=== PATIENT | male | born 1985 | race African-American/Black ===

== ENCOUNTER 2016-12-01 18:01 | Emergency (ER) | payer SELFPAY ==
[2016-12-01 18:12] VITALS: BP 125/77
[2016-12-01] MEDS ORDERED: PENICILLIN G BENZATHINE 1.2 MILLION UNIT/2 ML DISP.SYRIN IM ONE (18:41)
[2016-12-01] MEDS ORDERED: IBUPROFEN 600 MG TABLET PO ONE (18:41)
--- NOTE | 2016-12-01 18:54 | ER Document Report ---
HPI - HPI Patient complains to provider of: sore throat, exposure to strep Onset: This morning Onset/Duration: Gradual Quality of pain: Sharp Severity: Mild Pain Level: 2 Context: Patient complains of sore throat that started today. States he was exposed to strep. Denies congestion or other symptoms at this time. Associated Symptoms: Sore throat Exacerbated by: Denies Relieved by: Denies Similar symptoms previously: Yes Recently seen / treated by doctor: No - ROS ROS below otherwise negative: Yes Systems Reviewed and Negative: Yes All other systems reviewed and negative - CONSTITUTIONAL Constitutional: DENIES: Fever - EENT EENT: REPORTS: Sore Throat - NEURO Neurology: DENIES: Headache - CARDIOVASCULAR Cardiovascular: DENIES: Chest pain - RESPIRATORY Respiratory: DENIES: Trouble Breathing - GASTROINTESTINAL Gastrointestinal: DENIES: Abdominal Pain - MUSCULOSKELETAL Musculoskeletal: DENIES: Extremity pain - DERM Skin Color: Normal Past Medical History - General Information source: Patient - Social History Smoking Status: Never Smoker Frequency of alcohol use: None Drug Abuse: None Lives with: Family Family History: Reviewed & Not Pertinent - Past Medical History Cardiac Medical History: Reports: Hx DVT - 2011 in right calf Surgical Hx: Negative - Immunizations Hx Diphtheria, Pertussis, Tetanus Vaccination: No Vertical Provider Document - CONSTITUTIONAL Agree With Documented VS: Yes Exam Limitations: No Limitations General Appearance: WD/WN, No Apparent Distress - INFECTION CONTROL TRAVEL OUTSIDE OF THE [place] IN LAST 30 DAYS: No - HEENT HEENT: Atraumatic, Normocephalic, Pharyngeal Erythema - NECK Neck: Lymphadenopathy-Left, Lymphadenopathy-Right - RESPIRATORY Respiratory: Breath Sounds Normal, No Respiratory Distress O2 Sat by Pulse Oximetry: 99 - CARDIOVASCULAR Cardiovascular: Regular Rate, Regular Rhythm - MUSCULOSKELETAL/EXTREMETIES Musculoskeletal/Extremeties: MAEW - NEURO Level of Consciousness: Awake, Alert, Appropriate - DERM Integumentary: Warm, Dry, No Rash Course - Vital Signs Vital signs: Temp Pulse Resp BP Pulse Ox 98.8 F 72 125/77 99 12/01/16 18:10 12/01/16 18:10 12/01/16 18:10 12/01/16 18:10 Discharge - Discharge Clinical Impression: Pharyngitis Qualifiers: Pharyngitis/tonsillitis etiology: unspecified etiology Qualified Code(s): J02.9 - Acute pharyngitis, unspecified Condition: Good Disposition: HOME, SELF-CARE Additional Instructions: Tylenol or Motrin as needed for sore throat and/or fever Salt water gargles, lozenges for relief of symptoms as needed Push fluids Make sure toothbrush in 2 days Follow-up with your doctor for recheck if not better in 2-3 days Return as needed Forms: Return to Work
== END 2016-12-01 19:00 | disposition home or self-care (01) ==
LOC: ER 18:01
DX: J02.9 Acute pharyngitis, unspecified (principal); R59.0 Localized enlarged lymph nodes; Z20.818 Contact with and (suspected) exposure to other bacterial communicable diseases
CPT/HCPCS: 99282; 96372; J0561

== ENCOUNTER 2017-04-15 06:11 | Emergency (ER) | payer OTHER ==
[2017-04-15] MEDS ORDERED: KETOROLAC TROMETHAMINE INJ/PF 30 MG/1 ML SDV IV ONE (07:14)
[2017-04-15] MEDS ORDERED: NORMAL SALINE 1000 ML 1,000 ML IV PRN (07:14)
--- NOTE | 2017-04-15 08:16 | RADIOLOGY REPORT (SQ) ---
EXAM DESCRIPTION: CT LTD RENAL STONE PROTOCOL ON COMPLETED DATE/TIME: 04/15/2017 7:32 am REASON FOR STUDY: left flank pain COMPARISON: None. TECHNIQUE: CT scan of the abdomen and pelvis performed without intravenous or oral contrast. Images reviewed with lung, soft tissue, and bone windows. Reconstructed coronal and sagittal MPR images revi ewed. All images stored on PACS. All CT scanners at this facility use dose modulation, iterative reconstruction, and/or weight based d osing when appropriate to reduce radiation dose to as low as reasonably achievable (ALARA). [facility]: Dose Right [facility]: CareDose [facility]: Dose Right [facility]: Teradose 4D [facility]: Smart Fast Asset RADIATION DOSE: CT Rad equipment meets quality standard of care and radiation dose reduction techniq ues were employed. CTDIvol: 5.3 mGy. DLP: 289 mGy-cm.mGy. LIMITATIONS: None. FINDINGS: LOWER CHEST: Chronic bibasilar scarring. NON-CONTRASTED LIVER, SPLEEN, ADRENALS: Evaluation limited by lack of IV contrast. No identified sign ificant masses. PANCREAS: No masses. No peripancreatic inflammatory changes. GALLBLADDER: No identified stones by CT criteria. No inflammatory changes to suggest cholecystitis. RIGHT KIDNEY AND URETER: No suspicious masses. Assessment limited by lack of IV contrast. No signif icant calcifications. No hydronephrosis or hydroureter. LEFT KIDNEY AND URETER: No suspicious masses. Assessment limited by lack of IV contrast. No signifi cant calcifications. No hydronephrosis or hydroureter. AORTA AND RETROPERITONEUM: No aneurysm. No retroperitoneal masses or adenopathy. BOWEL AND PERITONEAL CAVITY: There is thickening of the stomach wall which could be due to incomplete distention. Constipation is noted. APPENDIX: Normal. PELVIS, BLADDER, AND ABDOMINAL WALL: Prostate: No abnormality seen urinary bladder: No abnormality seen. BONES: No significant findings. OTHER: No other significant finding. IMPRESSION: NO SIGNIFICANT OR ACUTE PROCESS IN THE ABDOMEN OR PELVIS. COMMENT: Quality ID # [id number]: Final reports with documentation of one or more dose reduction techniques (e.g., Automated exposure control, adjustment of the mA and/or kV according to patient size, use of iterative reconstruction technique) TECHNICAL DOCUMENTATION: JOB ID: [id number] SC-69 2010 [employer]- All Rights Reserved Reading location - IP/workstation name: [email or web address]
[2017-04-15 08:24] LABS: ABSOLUTE EOSINOPHILS # (AUTO) 0.1 10^3/uL (0.0-0.6); ABSOLUTE LYMPHOCYTES (AUTO) 1.7 10^3/uL (0.5-4.7); ABSOLUTE MONOCYTES (AUTO) 0.4 10^3/uL (0.1-1.4); ABSOLUTE NEUT (AUTO) 5.6 10^3/uL (1.7-8.2); BASOPHILS % (AUTO) 0.5 % (0-2); EOSINOPHILS % (AUTO) 1.7 % (0-6); HEMATOCRIT 46.2 % (37.9-51.0); HEMOGLOBIN 15.4 g/dL (13.5-17.0); LYMPHOCYTES % (AUTO) 21.5 % (13-45); MEAN CORPUSCULAR HEMOGLOBIN 31.1 pg (27.0-33.4); MEAN CORPUSCULAR HGB CONC 33.2 g/dL (32.0-36.0); MEAN CORPUSCULAR VOLUME 94 fl (80-97); MONOCYTES % (AUTO) 5.3 % (3-13); PLATELET COUNT 210 10^3/uL (150-450); RED BLOOD COUNT 4.94 10^6/uL (4.35-5.55); RED CELL DISTRIBUTION WIDTH 13.4 % (11.5-14.0); TOTAL CELLS COUNTED % (AUTO) 100 %; WHITE BLOOD COUNT 7.9 10^3/uL (4.0-10.5)
[2017-04-15 08:29] LABS: APPEARANCE,URINE CLEAR; BILIRUBIN,URINE NEGATIVE (NEGATIVE); COLOR,URINE YELLOW; GLUCOSE, URINE NEGATIVE (NEGATIVE); KETONES,URINE NEGATIVE (NEGATIVE); LEUKOCYTE ESTERASE,URINE NEGATIVE (NEGATIVE); NITRITE,URINE NEGATIVE (NEGATIVE); PROTEIN,URINE NEGATIVE (NEGATIVE); URINE SPECIFIC GRAVITY 1.023; UROBILINOGEN,URINE NEGATIVE mg/dL (<2.0)
[2017-04-15 08:49] LABS: ALANINE AMINOTRANSFERASE 22 U/L (21-72); ALBUMIN 4.3 g/dL (3.5-5.0); ALKALINE PHOSPHATASE 45 U/L (38-126); ANION GAP 9 (5-19); ASPARTATE AMINO TRANSFERASE 27 U/L (17-59); BILIRUBIN,DIRECT 0.1 mg/dL (0.0-0.4); BILIRUBIN,TOTAL 1.2 mg/dL (0.2-1.3); BLOOD UREA NITROGEN 16 mg/dL (7-20); CALCIUM 9.8 mg/dL (8.4-10.2); CARBON DIOXIDE 30 mmol/L (22-30); CHLORIDE 105 mmol/L (98-107); GLUCOSE 79 mg/dL (75-110); LIPASE 39.4 U/L (23-300); POTASSIUM 4.3 mmol/L (3.6-5.0); SODIUM 144.1 mmol/L (137-145); TOTAL PROTEIN 6.8 g/dL (6.3-8.2)
--- NOTE | 2017-04-15 09:35 | ER Document Report ---
ED General - General Chief Complaint: Flank Pain Stated Complaint: FLANK PAIN Time Seen by Provider: 04/15/17 06:32 TRAVEL OUTSIDE OF THE [place] IN LAST 30 DAYS: No - HPI Patient complains to provider of: Left flank pain Notes: Left foot pain ongoing for the last 2 weeks patient states pain is severe aching patient is unable to sit up in bed upon examination. Patient however was seen ambulating through the ER. Denies any nausea vomiting fevers chills denies any dysuria denies any trauma. Patient states he is not taking any medications with relief. Otherwise resting comfortably lying flat on his back upon my evaluation. - Related Data Allergies/Adverse Reactions: No Known Allergies Allergy (Verified 12/01/16 19:05) Past Medical History - Social History Smoking Status: Never Smoker Frequency of alcohol use: Rare Drug Abuse: None Family History: Reviewed & Not Pertinent Patient has suicidal ideation: No Patient has homicidal ideation: No - Past Medical History Cardiac Medical History: Reports: Hx DVT - 2011 in right calf Renal/ Medical History: Denies: Hx Peritoneal Dialysis - Immunizations Hx Diphtheria, Pertussis, Tetanus Vaccination: No Review of Systems - Review of Systems Constitutional: No symptoms reported EENT: No symptoms reported Cardiovascular: No symptoms reported Respiratory: No symptoms reported Gastrointestinal: No symptoms reported Genitourinary: Flank pain Male Genitourinary: No symptoms reported Musculoskeletal: No symptoms reported Skin: No symptoms reported Hematologic/Lymphatic: No symptoms reported Neurological/Psychological: No symptoms reported -: Yes All other systems reviewed and negative Physical Exam - Vital signs Vitals: Temp Pulse Resp BP Pulse Ox 97.9 F 76 16 147/99 H 100 04/15/17 06:16 04/15/17 06:16 04/15/17 06:16 04/15/17 06:16 04/15/17 06:16 Interpretation: Normal - General General appearance: Appears well, Alert - HEENT Head: Normocephalic, Atraumatic Eyes: Normal Pupils: PERRL - Respiratory Respiratory status: No respiratory distress Chest status: Nontender Breath sounds: Normal Chest palpation: Normal - Cardiovascular Rhythm: Regular Heart sounds: Normal auscultation Murmur: No - Abdominal Inspection: Normal Distension: No distension Bowel sounds: Normal Tenderness: Nontender Organomegaly: No organomegaly - Back Back: Normal, Tender - Tenderness to palpation of the left paraspinal muscles, CVA tenderness - Extremities General upper extremity: Normal inspection, Nontender, Normal color, Normal ROM , Normal temperature General lower extremity: Normal inspection, Nontender, Normal color, Normal ROM , Normal temperature, Normal weight bearing. No: Eyad's sign - Neurological Neuro grossly intact: Yes Cognition: Normal Orientation: AAOx4 [place] Coma Scale Eye Opening: Spontaneous [place] Coma Scale Verbal: Oriented [place] Coma Scale Motor: Obeys Commands [place] Coma Scale Total: 15 Speech: Normal Motor strength normal: LUE, RUE, LLE, RLE Sensory: Normal - Psychological Associated symptoms: Normal affect, Normal mood - Skin Skin Temperature: Warm Skin Moisture: Dry Skin Color: Normal Course - Re-evaluation Re-evalutation: 04/15/17 13:53 Patient resting comfortably upon my evaluation. Patient more likely has a muscle strain as that patient workup does not show any signs of significant pathology. Patient will be discharged on follow-up primary care physician. The patient presents with abdominal pain without signs of peritonitis or other life-threatening or serious etiology. The patient appears stable for discharge and has been instructed to return immediately if the symptoms worsen in any way , or in 8-12hr if not improved for re-evaluation. The patient has been instructed to return if the symptoms worsen or change in any way. 04/15/17 13:53 - Vital Signs Vital signs: Temp Pulse Resp BP Pulse Ox 98.5 F 64 16 136/93 H 100 04/15/17 09:57 04/15/17 09:57 04/15/17 09:57 04/15/17 09:57 04/15/17 09:57 - Laboratory Result Diagrams: 04/15/17 08:09 04/15/17 08:09 Laboratory results interpreted by me: 04/15/17 08:09 Urine Ascorbic Acid 40 H Discharge - Discharge Clinical Impression: Muscle strain, Flank pain Condition: Good Disposition: HOME, SELF-CARE Instructions: Flank Pain ([facility]), Myalagia (Muscle Pain) ([facility]) Additional Instructions: Your laboratory results today and CAT scan not reveal any significant pathology. More likely your pain is related to a muscle strain. Please follow- up with your primary care physician return to the ER symptoms worsen. Please take prescribed medication he may also take Tylenol for pain control use heat packs and ice packs. Prescriptions: Ibuprofen [Motrin 800 mg Tablet] 800 mg PO Q8H PRN #30 tab PRN Reason: Forms: Return to Work
[2017-04-15 09:58] VITALS: BP 136/93
== END 2017-04-15 09:58 | disposition home or self-care (01) ==
LOC: ER 06:11
DX: T14.8XXA Other injury of unspecified body region, initial encounter (principal); X58.XXXA Exposure to other specified factors, initial encounter; R10.9 Unspecified abdominal pain
CPT/HCPCS: 99284; 96361; 96374; 36415; 83690; 85025; 80053; 81001; 76380; J1885; J7030

== ENCOUNTER 2017-11-06 11:56 | Emergency (ER) | payer OTHER ==
[2017-11-06] MEDS ORDERED: FENTANYL CITRATE INJ/PF 100 MCG/2 ML AMPUL IV ONE ×2 (12:03→13:54)
[2017-11-06] MEDS ORDERED: KETOROLAC TROMETHAMINE INJ/PF 30 MG/1 ML SDV IV ONE (12:03)
[2017-11-06] MEDS ORDERED: ONDANSETRON HCL INJ/PF 4 MG/2 ML SDV IV ONE (12:03)
[2017-11-06] MEDS ORDERED: NORMAL SALINE 1000 ML 1,000 ML IV ONE (12:04)
--- NOTE | 2017-11-06 12:06 | ER Document Report ---
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 Severe/crampy in nature. Associated with nausea and vomited. No fever chills or other constitutional symptoms Examination he has been on acute distress. TRAVEL OUTSIDE OF THE [place] IN LAST 30 DAYS: No - Related Data Allergies/Adverse Reactions: No Known Allergies Allergy (Verified 12/01/16 19:05) Past Medical History - Past Medical History Cardiac Medical History: Reports: Hx DVT - 2011 in right calf Renal/ Medical History: Denies: Hx Peritoneal Dialysis - Immunizations Hx Diphtheria, Pertussis, Tetanus Vaccination: No Physical Exam - Vital signs Vitals: Temp Pulse Resp BP Pulse Ox 98.4 F 83 22 H 156/109 H 100 11/06/17 12:01 11/06/17 12:01 11/06/17 12:01 11/06/17 12:01 11/06/17 12:01 Course - Vital Signs Vital signs: Temp Pulse Resp BP Pulse Ox 98.4 F 83 22 H 156/109 H 100 11/06/17 12:01 11/06/17 12:01 11/06/17 12:01 11/06/17 12:01 11/06/17 12:01
--- NOTE | 2017-11-06 12:32 | ER Document Report ---
ED GI/ - General Chief Complaint: Nausea/Vomiting/Diarrhea Stated Complaint: ABDOMINAL PAIN Time Seen by Provider: 11/06/17 12:01 Notes: Patient is here with apparently severe abdominal pains, nausea and vomiting, and diarrhea which awakened the patient around 6 AM this morning. He has had about 4 episodes of vomiting and 4 episodes of diarrhea. Has not seen any blood in either. He has had similar pains to this in the past which has been attributed to an allergy to milk, but he says the pains have never been as severe as they are now. He recalls drinking some milk late last night. Patient has never had any abdominal surgeries. Does not take any regular prescription medications for anything. TRAVEL OUTSIDE OF THE [place] IN LAST 30 DAYS: No - Related Data Allergies/Adverse Reactions: No Known Allergies Allergy (Verified 12/01/16 19:05) Past Medical History - Social History Smoking Status: Never Smoker Frequency of alcohol use: None Drug Abuse: None Family History: Reviewed & Not Pertinent Patient has suicidal ideation: No Patient has homicidal ideation: No - Past Medical History Cardiac Medical History: Reports: Hx DVT - 2011 in right calf Renal/ Medical History: Denies: Hx Peritoneal Dialysis GI Medical History: Reports: Other - See HPI. - Immunizations Hx Diphtheria, Pertussis, Tetanus Vaccination: No Review of Systems - Review of Systems Notes: REVIEW OF SYSTEMS: Denies fever. EENT: Denies eye, ear, nose or mouth or throat pain or other symptoms. CARDIOVASCULAR: Denies chest pain. RESPIRATORY: Denies cough, chest congestion, or shortness of breath. GASTROINTESTINAL: See HPI. GENITOURINARY: Denies difficulty or painful urinating, urinary frequency, blood in urine. MUSCULOSKELETAL: Denies back or neck pain. Denies joint pain or swelling. SKIN: Denies rash or skin lesions. NEUROLOGICAL: Denies LOC or altered mental status. Denies headache. Denies sensory loss or motor deficits. ALL OTHER SYSTEMS REVIEWED AND NEGATIVE. Physical Exam - Vital signs Vitals: Temp Pulse Resp BP Pulse Ox 98.4 F 83 22 H 156/109 H 100 11/06/17 12:01 11/06/17 12:01 11/06/17 12:01 11/06/17 12:01 11/06/17 12:01 Interpretation: Hypertensive - Moderate - Notes Notes: PHYSICAL EXAMINATION: General: Appears to be in pain. On the floor, on his knees, in the bathroom leaning all the way forward so that his upper body is to the floor. HEAD: Atraumatic, normocephalic. EYES: Pupils equal round and reactive to light, extraocular movements intact. ENT: oropharynx clear without exudates. Moist mucous membranes. NECK: Normal range of motion, supple. LUNGS: Breath sounds clear and equal bilaterally. HEART: Regular rate and rhythm without murmurs. ABDOMEN: Diffuse tenderness, patient indicates most pain in the suprapubic region and right midline area. No masses felt. Not actually guarding and no rebound present. BACK: No tenderness throughout entire back. EXTREMITIES: Normal range of motion without pain. NEUROLOGICAL: Normal speech, normal gait. Normal sensory, motor, and reflex exams. Awake, alert, and oriented x3. Cranial nerves normal. PSYCH: Normal mood, normal affect. SKIN: Warm, dry, no rashes. Course - Re-evaluation Re-evalutation: 11/06/17 13:53 Patient says his abdomen is a "little bit" better and that the medications have helped some. He points specifically to the suprapubic region of his abdomen as the location of the pain. Does not have any pain or tenderness in the right lower quadrant at McBurney's point. No guarding and no rebound anywhere. No labs back yet. Probably going to order a CT scan. 11/06/17 18:03 Patient says he still having some pain but is less than it was doing. All of his studies except for his white count and differential have come back essentially normal, but also positive for marijuana. I discussed with the patient the possibility he might have what we call cyclic vomiting secondary to the marijuana. He believes that his vomiting and abdominal pains are secondary to the ingestion of cereal with milk. I told him that I cannot tell him for sure what caused his symptoms, but I would recommend he consider cutting out smoking marijuana for a while and see if that helps his symptoms. He points out that he smokes marijuana every day and does not have pain or vomiting every day so he does not think it is the marijuana. I still suggested he consider giving up the marijuana for a while and avoid the milk as well and see if his symptoms occur again. His abdomen is soft and really not tender at all at this time. No guarding. No localized tenderness. - Vital Signs Vital signs: Temp Pulse Resp BP Pulse Ox 97.7 F 59 L 18 109/54 L 100 11/06/17 15:03 11/06/17 15:03 11/06/17 15:03 11/06/17 15:03 11/06/17 15:03 - Laboratory Result Diagrams: 11/06/17 13:38 11/06/17 13:38 Laboratory results interpreted by me: 11/06/17 11/06/17 11/06/17 13:38 13:38 14:45 WBC 11.2 H RBC 4.25 L Hgb 13.3 L Seg Neuts % (Manual) 93 H Lymphocytes % (Manual) 6 L Monocytes % (Manual) 1 L Abs Neuts (Manual) 10.4 H Chloride 108 H Glucose 132 H Urine Glucose (UA) 50 H Urine Ketones TRACE H - Diagnostic Test Radiology reviewed: Image reviewed, Reports reviewed - Patient CT scan is normal. Appendix normal. No surgical findings. Discharge - Discharge Clinical Impression: Abdominal pain, Vomiting and diarrhea Condition: Stable Disposition: HOME, SELF-CARE Additional Instructions: ABDOMINAL PAIN: There are many causes of abdominal pain. Pain can mean a serious problem requiring surgery (such as appendicitis). It can also be an innocent problem that goes away on its own (such as a viral infection). Often, time must pass to determine the cause of pain. The physician does not feel that hospitalization is necessary, at present. Things may change within the next 24 hours. Call the doctor or come back for re- examination if any problems occur, such as: (1) Pain that becomes more severe, steady, or becomes concentrated in one specific area. Also, pain that is more severe with movement or coughing. (2) Vomiting that persists or becomes more frequent. (3) Blood in the vomitus, urine, or bowel movements. Blood in the stool may have a tarry or black appearance. (4) Shaking chills or fever greater than 100 degrees F. (5) The abdomen becomes more distended or swollen. (6) Bowel movements cease. (7) Failure to improve as expected. VOMITING: Vomiting (or nausea without vomiting) can be caused by many other different problems. It can mean that something's wrong with the stomach, such as ulcers or inflammation or the intestinal tract, such as appendicitis. But it can also be a symptom of a problem that has nothing to do with the stomach or intestines. Vomiting is common with severe headaches, earaches, tonsillitis, and kidney infections, etc. We see it with pneumonia or heart attacks. Drugs can cause nausea and vomiting. Many abdominal problems cause vomiting; for example, gallstones, kidney stones, pancreatitis, and intestinal obstruction ( blocked bowels). In most cases, curing the vomiting depends on fixing the problem that caused it. For temporary relief, we may use an anti-nausea medicine. For home use, we can prescribe suppositories, chewable pills, pills that dissolve in the mouth, or liquid anti-nausea drugs. If the vomiting seems to be caused by a problem in the stomach, acid-suppressing drugs may be prescribed as well. It's important to avoid dehydration. Sip small amounts of clear liquids ( soft drinks, tea, broth, etc) . Try to take fluids frequently even if you are vomiting to prevent dehydration. Take increasing amounts of fluid and when liquids are being consumed successfully, advance to small amounts of bland food (toast, soups, mashed potatoes, etc.) until you are able to resume a regular diet. Avoid aspirin, tobacco, and alcohol. If the vomiting worsens, if the problem that's making you vomit worsens, or if there's evidence of bleeding in the stomach (such as black, tarry stool, or bloody or black vomit), you should return immediately. Also, return if abdominal pain worsens or becomes localized to one area or you develop high fever. Call your doctor if you aren't improved in 24 hours. DIARRHEA, NON-SPECIFIC: Diarrhea means frequent, watery stools. There are many causes. Any problem that keeps the intestinal tract from absorbing water from the stool can lead to diarrhea. A sudden new diarrhea problem is usually caused by a virus, food sensitivity, toxic bacteria, or drugs. In this case, we expect the problem to go away soon. Testing is done only if you seem seriously ill from the diarrhea. If you have chronic diarrhea, or diarrhea that keeps coming back, we need to find out why. Chronic diarrhea can be due to inflammation of the bowels such as Crohn's disease or ulcerative colitis, food sensitivity such as intolerance to lactose or wheat protein, irritable bowel syndrome, and other problems. If your diarrhea is a significant problem but it's not clear why you have it, we' ll refer you to a specialist for further testing. During an episode of diarrhea, drink small amounts (two to six ounces) of clear liquids (soft drinks, sport drinks, herb teas, broth, etc). Take fluids frequently to prevent dehydration. It's usually not a problem to take mild anti- diarrhea medication such as Kaopectate or Pepto-Bismol. As the diarrhea eases, advance to small amounts of bland food (mashed potato, toast) for 24 hours. Call the physician if blood appears in your vomit or stool, if vomiting lasts longer than 24 hours, if the abdominal pain worsens or becomes localized to one area, if you develop high fever, or if you become lightheaded and weak. TORADOL INJECTION: You have been given an injection of ketorolac tromethamine (Toradol). This is an excellent, safe drug for pain control. It also has potent antiinflammatory action. You should have significant pain relief within about one hour. Toradol is not addicting and is non-sedating. It does not interfere with driving or work. Call or return if you develop itching, hives, shortness of breath, or rash. PAIN MEDICATION INJECTION: You have received an injection of a pain medication. You should experience significant pain relief within 45 minutes. This drug is a narcotic - - it will impair your judgement, slow your reaction time and make you sleepy ( as well as relieve your pain). Narcotics also can cause nausea. You should not drive, work with machinery, or perform any task requiring mental alertness until all effects of the medication are gone -- six to eight hours. Do not take any alcohol, or sedatives, and do not take any other medication without checking with your physician. ANTINAUSEA MEDICATION: You have been given a medication to suppress nausea and vomiting. This type of medication can be given as a shot, pill, or suppository. It will usually last for many hours. Pills and shots usually last six to eight hours, suppositories last about 12 hours. For the typical illness, only one or two doses of the medication may be necessary. Mild lightheadedness may occur. This type of medicine can cause drowsiness. Do not drive or operate dangerous machinery while under its influence. Do not mix with alcohol. See your doctor at once if you have muscle spasms or tightness, or uncontrollable motions (particularly of the neck, mouth, or jaw). Persistent vomiting or severe lightheadedness should also be evaluated by the physician. VIRAL SYNDROME: The physician has diagnosed a viral infection. Viruses not only cause "colds," but can cause many different symptoms including generalized aching, fever, headache, cough, diarrhea, nausea, vomiting, and fatigue. The treatment, for the most part, is simply relief of symptoms. This means that antibiotics are usually not given. Rest, fluids, pain medications and, occasionally, medication for the specific symptoms that are most bothersome will be prescribed. Use good handwashing to avoid passing the virus to others. Shared toys should be cleaned with disinfectant. Clean the toilets, sinks, and counter surfaces in bathrooms. Launder clothing in hot water. Contact the physician if you develop any new or unusual symptoms such as severe headache, stiff neck, high fever, chest pain, productive cough, or shortness of breath. You should be rechecked if you don't see marked improvement within seven to 10 days. INTRAVENOUS (I V) FLUIDS: As part of your care today, you received intravenous (IV) fluids. IV fluids are administered to patients who are dehydrated or to those who have certain chemical (electrolyte) abnormalities that need correcting. ANTINAUSEA MEDICATION: You have been given a medication to suppress nausea and vomiting. This type of medication can be given as a shot, pill, or suppository. It will usually last for many hours. Pills and shots usually last six to eight hours. For the typical illness, only one or two doses of the medication may be necessary. Mild lightheadedness may occur. This type of medicine can cause drowsiness. Do not drive or operate dangerous machinery while under its influence. Do not mix with alcohol. See your doctor at once if you have muscle spasms or tightness, or uncontrollable motions (particularly of the neck, mouth, or jaw). Persistent vomiting or severe lightheadedness should also be evaluated by the physician. You may have a sensitivity or allergy to milk. Your urinalysis drug screen showed marijuana present which can also cause similar symptoms of what you are experiencing. I would recommend you avoid milk and marijuana for a while and see if your symptoms subside. FOLLOW-UP CARE: If you have been referred to a physician for follow-up care, call the physician s office for an appointment as you were instructed or within the next two days. If you experience worsening or a significant change in your symptoms, notify the physician immediately or return to the Emergency Department at any time for re-evaluation.
[2017-11-06 13:49] LABS: HEMATOCRIT 38.8 % (37.9-51.0); HEMOGLOBIN 13.3 g/dL (13.5-17.0); MEAN CORPUSCULAR HEMOGLOBIN 31.3 pg (27.0-33.4); MEAN CORPUSCULAR HGB CONC 34.3 g/dL (32.0-36.0); MEAN CORPUSCULAR VOLUME 91 fl (80-97); PLATELET COUNT 164 10^3/uL (150-450); RED BLOOD COUNT 4.25 10^6/uL (4.35-5.55); WHITE BLOOD COUNT 11.2 10^3/uL (4.0-10.5)
[2017-11-06 14:03] LABS: ALANINE AMINOTRANSFERASE 23 U/L (21-72); ALBUMIN 3.7 g/dL (3.5-5.0); ALKALINE PHOSPHATASE 46 U/L (38-126); ANION GAP 8 (5-19); ASPARTATE AMINO TRANSFERASE 20 U/L (17-59); BILIRUBIN,DIRECT 0.2 mg/dL (0.0-0.4); BILIRUBIN,TOTAL 0.8 mg/dL (0.2-1.3); BLOOD UREA NITROGEN 9 mg/dL (7-20); CARBON DIOXIDE 24 mmol/L (22-30); CHLORIDE 108 mmol/L (98-107); GLUCOSE 132 mg/dL (75-110); LIPASE 24.6 U/L (23-300); POTASSIUM 4.2 mmol/L (3.6-5.0); SODIUM 140.1 mmol/L (137-145); TOTAL PROTEIN 6.3 g/dL (6.3-8.2)
[2017-11-06 14:14] LABS: ABSOLUTE LYMPHOCYTES# (MANUAL) 0.7 10^3/uL (0.5-4.7); ABSOLUTE MONOCYTES # (MANUAL) 0.1 10^3/uL (0.1-1.4); ABSOLUTE NEUTROPHILS# (MANUAL) 10.4 10^3/uL (1.7-8.2); BASOPHILS % (MANUAL) 0 % (0-2); EOSINOPHILS % (MANUAL) 0 % (0-6); LYMPHOCYTES % (MANUAL) 6 % (13-45); MONOCYTES % (MANUAL) 1 % (3-13); SEGMENTED NEUTROPHILS % (MAN) 93 % (42-78); TOTAL CELLS COUNTED 100
[2017-11-06 14:15] LABS: PLATELET CLUMPS PRESENT; PLATELET COMMENT ADEQUATE; RBC MORPHOLOGY COMMENT NORMO-CYTIC/CHROMIC
--- NOTE | 2017-11-06 14:15 | RADIOLOGY REPORT (SQ) ---
EXAM DESCRIPTION: ACUTE ABDOMEN SERIES COMPLETED DATE/TIME: 11/06/2017 1:46 pm REASON FOR STUDY: Acute abdominal pain COMPARISON: None. NUMBER OF VIEWS: Three views. TECHNIQUE: Frontal chest, supine abdomen and upright/decubitus abdomen radiographic images acquired. LIMITATIONS: None. FINDINGS: CHEST: Lungs clear of infiltrates. FREE AIR: None. No abnormal gas collections. BOWEL GAS PATTERN: Nonobstructive pattern. No dilated loops or air fluid levels. CALCIFICATIONS: No suspicious calcifications. HARDWARE: None in the abdomen. SOFT TISSUES: No gross mass or suggestion of organomegaly. BONES: No acute fracture. No worrisome bone lesions. OTHER: No other significant finding. IMPRESSION: NO RADIOGRAPHIC EVIDENCE FOR ACUTE ABDOMINAL DISEASE. TECHNICAL DOCUMENTATION: JOB ID: [id number] [employer]- All Rights Reserved Reading location - IP/workstation name: [email or web address]
[2017-11-06 15:15] LABS: APPEARANCE,URINE CLEAR; BILIRUBIN,URINE NEGATIVE (NEGATIVE); COLOR,URINE YELLOW; GLUCOSE, URINE 50 mg/dL (NEGATIVE); KETONES,URINE TRACE mg/dL (NEGATIVE); LEUKOCYTE ESTERASE,URINE NEGATIVE (NEGATIVE); NITRITE,URINE NEGATIVE (NEGATIVE); PROTEIN,URINE NEGATIVE (NEGATIVE); URINE SPECIFIC GRAVITY 1.017; UROBILINOGEN,URINE NEGATIVE mg/dL (<2.0)
[2017-11-06 15:47] LABS: URINE AMPHETAMINES SCREEN NEGATIVE; URINE BARBITURATES SCREEN NEGATIVE; URINE BENZODIAZEPINES SCREEN NEGATIVE; URINE COCAINE SCREEN NEGATIVE; URINE MARIJUANA (THC) SCREEN UNCONFIRMED POSITIVE; URINE METHADONE SCREEN NEGATIVE; URINE PHENCYCLIDINE SCREEN NEGATIVE
--- NOTE | 2017-11-06 17:17 | RADIOLOGY REPORT (SQ) ---
EXAM DESCRIPTION: CT ABD/PELVIS WITH IV ORAL COMPLETED DATE/TIME: 11/06/2017 4:39 pm REASON FOR STUDY: Lower, mostly suprapubic pain COMPARISON: None. TECHNIQUE: CT scan of the abdomen and pelvis performed using helical scanning technique with dynamic intravenous contrast injection. No oral contrast. Images reviewed with lung, soft tissue, and bone w indows. Reconstructed coronal and sagittal MPR images reviewed. Delayed images for evaluation of the urinary system also acquired. All images stored on PACS. All CT scanners at this facility use dose modulation, iterative reconstruction, and/or weight based d osing when appropriate to reduce radiation dose to as low as reasonably achievable (ALARA). [facility]: Dose Right [facility]: CareDose [facility]: Dose Right [facility]: Teradose 4D [facility]: [employer] CONTRAST TYPE AND DOSE: contrast/concentration: Isovue 350.00 mg/ml; Total Contrast Delivered: 86.0 ml; Total Saline Delivered: 69.0 ml RENAL FUNCTION: None required. The patient is less than 50 years old. RADIATION DOSE: CT Rad equipment meets quality standard of care and radiation dose reduction techniq ues were employed. CTDIvol: 5.6 - 7.7 mGy. DLP: 734 mGy-cm.. LIMITATIONS: None. FINDINGS: LOWER CHEST: No significant findings. LIVER: Normal size. No enhancing masses. No dilated ducts. SPLEEN: Normal size. No focal lesions. PANCREAS: No masses identified. No significant calcifications. No adjacent inflammation or peripancre atic fluid collections. Pancreatic duct not dilated. GALLBLADDER: No calcified stones. No inflammatory changes to suggest cholecystitis. ADRENAL GLANDS: No significant masses. RIGHT KIDNEY AND URETER: No cysts identified. No solid masses identified. No calcified stones. No hyd ronephrosis or hydroureter. LEFT KIDNEY AND URETER: No cysts identified. No solid masses identified. No calcified stones. No hydr onephrosis or hydroureter. AORTA AND VESSELS: No aneurysm. No dissection. Renal arteries, SMA, celiac without significant stenos is. RETROPERITONEUM: No bulky retroperitoneal adenopathy. BOWEL AND PERITONEAL CAVITY: No obstruction or inflammatory changes. No free fluid. APPENDIX: Normal. PELVIS: No mass. No free fluid. Unremarkable bladder. ABDOMINAL WALL: No masses. No hernias. BONES: No acute findings. OTHER: No other significant finding. IMPRESSION: NO ACUTE FINDINGS IN THE ABDOMEN OR PELVIS ON CT SCAN WITH IV CONTRAST. TECHNICAL DOCUMENTATION: JOB ID: [id number] Quality ID # [id number]: Final reports with documentation of one or more dose reduction techniques (e.g., Au tomated exposure control, adjustment of the mA and/or kV according to patient size, use of iterative reconstruction technique) 2010 [employer]- All Rights Reserved Reading location - IP/workstation name: [email or web address]
[2017-11-06 18:37] VITALS: BP 131/73
== END 2017-11-06 18:40 | disposition home or self-care (01) ==
LOC: ER 11:56
DX: R10.30 Lower abdominal pain, unspecified (principal); R11.2 Nausea with vomiting, unspecified; R19.7 Diarrhea, unspecified; R10.817 Generalized abdominal tenderness
CPT/HCPCS: 99285; 96361; 96374; 96375; 36415; 83690; 85025; 80053; 81001; 80307; 74022; 74177; J3010; J1885; J2405

== ENCOUNTER 2017-11-23 09:32 | Emergency (ER) | payer OTHER ==
[2017-11-23] MEDS ORDERED: NORMAL SALINE 1000 ML 1,000 ML IV ONE (09:47)
[2017-11-23] MEDS ORDERED: ONDANSETRON 4 MG TAB.RAPDIS PO ONE (09:47)
--- NOTE | 2017-11-23 09:50 | ER Document Report ---
ED Medical Screen (RME) - General Chief Complaint: Abdominal Pain Stated Complaint: ABDOMINAL PAIN Time Seen by Provider: 11/23/17 09:41 Mode of Arrival: Ambulatory Information source: Patient Notes: 32-year-old male presents emergency department with complaints of abdominal pain that started at 5 AM. He describes the pain as a sharp and stabbing sensation in the lower abdomen without any radiation. No alleviating factors. Patient states that the pain is been constant. He is having some associated nausea, vomiting, diarrhea. He denies any hematemesis, hematochezia, melena, penile discharge, testicular pain, dysuria, hematuria. Patient states that he has been having some associated fever and chills. He states that he was seen in the emergency department for similar on 11/06/17. Patient states that he had labs and imaging done. He states that his CT abdomen pelvis was normal. He was told that his symptoms could be related to marijuana use. Patient states that he cut back on the marijuana use but has not cut it out completely. He denies any medical problems. No surgeries on his abdomen. I have greeted and performed a rapid initial assessment of this patient. A comprehensive ED assessment and evaluation of the patient, analysis of test results and completion of the medical decision making process will be conducted by additional ED providers. PHYSICAL EXAMINATION: GENERAL: Appears uncomfortable. Actively vomiting. HEAD: Atraumatic, normocephalic. EYES: Pupils equal round extraocular movements intact, conjunctiva are normal. ENT: Nares patent NECK: Normal range of motion LUNGS: No respiratory distress Musculoskeletal: Normal range of motion NEUROLOGICAL: Normal speech, normal gait. PSYCH: Normal mood, normal affect. SKIN: Warm, Dry, normal turgor, no rashes or lesions noted. TRAVEL OUTSIDE OF THE [place] IN LAST 30 DAYS: No - Related Data Allergies/Adverse Reactions: No Known Allergies Allergy (Verified 12/01/16 19:05) Past Medical History - Social History Chew tobacco use (# tins/day): No Frequency of alcohol use: None Drug Abuse: Marijuana - Past Medical History Cardiac Medical History: Reports: Hx DVT - 2011 in right calf Renal/ Medical History: Denies: Hx Peritoneal Dialysis - Immunizations Hx Diphtheria, Pertussis, Tetanus Vaccination: No Physical Exam - Vital signs Vitals: Temp Pulse Resp BP Pulse Ox 97.8 F 83 24 H 168/113 H 100 11/23/17 09:41 11/23/17 09:41 11/23/17 09:41 11/23/17 09:41 11/23/17 09:41 Course - Vital Signs Vital signs: Temp Pulse Resp BP Pulse Ox 97.8 F 83 24 H 168/113 H 100 11/23/17 09:41 11/23/17 09:41 11/23/17 09:41 11/23/17 09:41 11/23/17 09:41
[2017-11-23 10:17] LABS: ABSOLUTE BASOPHILS # (AUTO) 0.1 10^3/uL (0.0-0.2); ABSOLUTE EOSINOPHILS # (AUTO) 0.1 10^3/uL (0.0-0.6); ABSOLUTE LYMPHOCYTES (AUTO) 1.8 10^3/uL (0.5-4.7); ABSOLUTE MONOCYTES (AUTO) 0.4 10^3/uL (0.1-1.4); ABSOLUTE NEUT (AUTO) 12.3 10^3/uL (1.7-8.2); BASOPHILS % (AUTO) 0.5 % (0-2); EOSINOPHILS % (AUTO) 0.4 % (0-6); HEMATOCRIT 45.1 % (37.9-51.0); HEMOGLOBIN 15.5 g/dL (13.5-17.0); LYMPHOCYTES % (AUTO) 12.1 % (13-45); MEAN CORPUSCULAR HEMOGLOBIN 31.5 pg (27.0-33.4); MEAN CORPUSCULAR HGB CONC 34.3 g/dL (32.0-36.0); MEAN CORPUSCULAR VOLUME 92 fl (80-97); PLATELET COUNT 202 10^3/uL (150-450); RED BLOOD COUNT 4.91 10^6/uL (4.35-5.55); RED CELL DISTRIBUTION WIDTH 13.3 % (11.5-14.0); TOTAL CELLS COUNTED % (AUTO) 100 %; WHITE BLOOD COUNT 14.7 10^3/uL (4.0-10.5)
[2017-11-23] MEDS ORDERED: KETOROLAC TROMETHAMINE INJ/PF 30 MG/1 ML SDV IV ONE (10:21)
--- NOTE | 2017-11-23 10:27 | ER Document Report ---
ED General - General Chief Complaint: Abdominal Pain Stated Complaint: ABDOMINAL PAIN Time Seen by Provider: 11/23/17 09:41 Mode of Arrival: Ambulatory Notes: 32-year-old male presents with sudden onset of lower abdominal pain. This is began this morning. Complains of sudden onset of severe 10 out of 10 pain in his suprapubic area. Denies any back or flank pain. He had this on several occasions in the past. They have never been able to find anything. The patient is a chronic marijuana smoker. He was told this may be related to his marijuana use. He is try to cut back but has been unable to completely stop use. He complains of severe 10 out of 10 cramping suprapubic abdominal discomfort. States this began suddenly this morning. Denies any constipation diarrhea denies any hematuria or dysuria. Denies chest pain denies shortness of breath. Comes here to the emergency department for further care TRAVEL OUTSIDE OF THE [place] IN LAST 30 DAYS: No - Related Data Allergies/Adverse Reactions: No Known Allergies Allergy (Verified 12/01/16 19:05) Past Medical History - General Information source: Patient - Social History Smoking Status: Never Smoker Chew tobacco use (# tins/day): No Frequency of alcohol use: None Drug Abuse: Marijuana Family History: Reviewed & Not Pertinent Patient has suicidal ideation: No Patient has homicidal ideation: No - Past Medical History Cardiac Medical History: Reports: Hx DVT - 2011 in right calf Renal/ Medical History: Denies: Hx Peritoneal Dialysis - Immunizations Hx Diphtheria, Pertussis, Tetanus Vaccination: No Review of Systems - Review of Systems Constitutional: denies: Chills, Fever Cardiovascular: denies: Chest pain, Dyspnea Respiratory: denies: Cough, Short of breath Gastrointestinal: Abdominal pain, Nausea. denies: Vomiting, Constipation, Black stools, Rectal bleeding Genitourinary: denies: Dysuria, Hematuria Musculoskeletal: denies: Back pain Skin: denies: Rash Neurological/Psychological: Anxiety. denies: Headaches -: Yes All other systems reviewed and negative Physical Exam - Vital signs Vitals: Temp Pulse Resp BP Pulse Ox 97.8 F 83 24 H 168/113 H 100 11/23/17 09:41 11/23/17 09:41 11/23/17 09:41 11/23/17 09:41 11/23/17 09:41 - Notes Notes: GENERAL_APPEARANCE: well_nourished, alert, cooperative, patient looks very uncomfortable is kneeling on the bed. VITALS: reviewed, see vital signs table. HEAD: no_swelling\tenderness on the head. EYES: PERRL, EOMI, conjunctiva_clear. NOSE: no_nasal_discharge. MOUTH: (-)decreased moisture. THROAT: no_throat inflammation, no_airway_obstruction. no_lymphadenopathy NECK: supple, no_neck_tenderness, (-)thyromegaly. BACK: no_back_tenderness. CHEST_WALL: no_chest_tenderness. LUNGS: no_wheezing, no_rales, no_rhonchi, (-)accessory muscle use, good air exchange bilateral. HEART: normal_rate, normal_rhythm, normal_S1, normal_S2, (-)S3, (-)S4, no_ murmur, no_rub. ABDOMEN: Slight hyperactivity_BS, soft, prepubic_abd_tenderness, (-)guarding, ( -)rebound, no_organomegaly, no_abd_masses. EXTREMITIES: good pulses in all_extremities, no_swelling\tenderness in the extremities, no_edema. SKIN: warm, dry, good_color, no_rash. MENTAL_STATUS: speech_clear, oriented_X_3, normal_affect, responds_ appropriately to questions. NEURO: Neg Motor or Sensory Deficits on exam, CN 2-12 intact, DTR 2+ symmetric x 4, No cerbellar signs Course - Re-evaluation Re-evalutation: 11/23/17 10:26 32-year-old male arrives with sudden onset of severe 10 out of 10 abdominal pain. The patient is kneeling on the bed and cannot sit still he almost looks like a kidney stone. I looked back at his prior workups and they have all been negative. If this was marijuana related I expect gastroparesis/cyclic vomiting. A hyperemesis syndrome but the patient has not vomited significantly. He said severe nausea I would expect that the discomfort to be more epigastric. Presentation is strange she has no pulsatile masses in the abdomen or anything to suggest aortic reason he has had 2 prior CTs this year which showed no aneurysm. My suspicion for this is low we will check him for kidney stone will get a repeat scan check urinalysis give him IV fluids and pain medicine. We will try some Toradol. 11/23/17 12:28 Patient is feeling much better. Again his workup here was fairly negative. Bilirubin was up to 1.5 but this is likely due to the vomiting. No kidney stone was noted. No appendicitis. No obstruction. Patient is feeling much better. This may likely be cannabis hyperemesis syndrome. I spoke with him at length he is comfortable to go home - Vital Signs Vital signs: Temp Pulse Resp BP Pulse Ox 97.8 F 83 24 H 168/113 H 100 11/23/17 09:41 11/23/17 09:41 11/23/17 09:41 11/23/17 09:41 11/23/17 09:41 - Laboratory Result Diagrams: 11/23/17 09:56 11/23/17 09:56 Laboratory results interpreted by me: 11/23/17 11/23/17 11/23/17 09:56 09:56 11:25 WBC 14.7 H Seg Neutrophils % 84.0 H Lymphocytes % 12.1 L Absolute Neutrophils 12.3 H Glucose 133 H Total Bilirubin 1.5 H ALT 20 L Urine Glucose (UA) 50 H Urine Ketones TRACE H - Diagnostic Test Radiology reviewed: Reports reviewed Radiology results interpreted by me: 11/23/17 12:28 Acute Abdomen Series 11/23/17 09:47 IMPRESSION: NO RADIOGRAPHIC EVIDENCE FOR ACUTE ABDOMINAL DISEASE. Abdomen/Pelvis CT 11/23/17 10:22 IMPRESSION: NO SIGNIFICANT OR ACUTE PROCESS IN THE ABDOMEN OR PELVIS. Discharge - Discharge Clinical Impression: Cannabis hyperemesis syndrome concurrent with and due to cannabis abuse Abdominal pain Qualifiers: Abdominal location: generalized Qualified Code(s): R10.84 - Generalized abdominal pain Condition: Good Disposition: HOME, SELF-CARE Instructions: Abdominal Pain ([facility]) Additional Instructions: Avoid continued cannabis use Prescriptions: Prochlorperazine Maleate [Compazine 10 mg Tablet] 10 mg PO ASDIR PRN #10 tablet PRN Reason:
--- NOTE | 2017-11-23 10:27 | RADIOLOGY REPORT (SQ) ---
EXAM DESCRIPTION: ACUTE ABDOMEN SERIES COMPLETED DATE/TIME: 11/23/2017 10:16 am REASON FOR STUDY: abdominal pain COMPARISON: 11/06/2017 NUMBER OF VIEWS: Three views. TECHNIQUE: Frontal chest, supine abdomen and upright/decubitus abdomen radiographic images acquired. LIMITATIONS: None. FINDINGS: CHEST: Lungs clear of infiltrates. FREE AIR: None. No abnormal gas collections. BOWEL GAS PATTERN: Nonobstructive pattern. No dilated loops or air fluid levels. CALCIFICATIONS: No suspicious calcifications. HARDWARE: None in the abdomen. SOFT TISSUES: No gross mass or suggestion of organomegaly. BONES: No acute fracture. No worrisome bone lesions. OTHER: No other significant finding. IMPRESSION: NO RADIOGRAPHIC EVIDENCE FOR ACUTE ABDOMINAL DISEASE. TECHNICAL DOCUMENTATION: JOB ID: [id number] [email or web address]- All Rights Reserved Reading location - IP/workstation name: [email or web address]
[2017-11-23] MEDS ORDERED: PROCHLORPERAZINE EDISYLATE INJ 10 MG/2 ML VIAL IV ONE (10:31)
[2017-11-23 10:35] LABS: ALANINE AMINOTRANSFERASE 20 U/L (21-72); ALBUMIN 4.6 g/dL (3.5-5.0); ALKALINE PHOSPHATASE 59 U/L (38-126); ANION GAP 10 (5-19); ASPARTATE AMINO TRANSFERASE 27 U/L (17-59); BILIRUBIN,DIRECT 0.3 mg/dL (0.0-0.4); BILIRUBIN,TOTAL 1.5 mg/dL (0.2-1.3); BLOOD UREA NITROGEN 8 mg/dL (7-20); CALCIUM 9.7 mg/dL (8.4-10.2); CARBON DIOXIDE 25 mmol/L (22-30); CHLORIDE 105 mmol/L (98-107); GLUCOSE 133 mg/dL (75-110); LIPASE 46.1 U/L (23-300); POTASSIUM 3.7 mmol/L (3.6-5.0); SODIUM 140.1 mmol/L (137-145)
--- NOTE | 2017-11-23 11:21 | RADIOLOGY REPORT (SQ) ---
EXAM DESCRIPTION: CT ABD/PELVIS NO ORAL OR IV COMPLETED DATE/TIME: 11/23/2017 11:00 am REASON FOR STUDY: sudden abd pain COMPARISON: CT abdomen pelvis 04/15/2017, 11/06/2017 Abdominal series [id number], [id number] TECHNIQUE: CT scan of the abdomen and pelvis performed without intravenous or oral contrast. Images reviewed with lung, soft tissue, and bone windows. Reconstructed coronal and sagittal MPR images revi ewed. All images stored on PACS. All CT scanners at this facility use dose modulation, iterative reconstruction, and/or weight based d osing when appropriate to reduce radiation dose to as low as reasonably achievable (ALARA). [facility]: Dose Right [facility]: CareDose [facility]: Dose Right [facility]: Teradose 4D [facility]: Smart [employer] RADIATION DOSE: CT Rad equipment meets quality standard of care and radiation dose reduction techniq ues were employed. CTDIvol: 5.5 mGy. DLP: 305 mGy-cm.mGy. LIMITATIONS: Motion artifact FINDINGS: LOWER CHEST: No significant findings. No nodules or infiltrates. NON-CONTRASTED LIVER, SPLEEN, ADRENALS: Evaluation limited by lack of IV contrast. No identified sign ificant masses. PANCREAS: No masses. No peripancreatic inflammatory changes. GALLBLADDER: No identified stones by CT criteria. No inflammatory changes to suggest cholecystitis. RIGHT KIDNEY AND URETER: No suspicious masses. Assessment limited by lack of IV contrast. No signif icant calcifications. No hydronephrosis or hydroureter. LEFT KIDNEY AND URETER: No suspicious masses. Assessment limited by lack of IV contrast. No signifi cant calcifications. No hydronephrosis or hydroureter. AORTA AND RETROPERITONEUM: No aneurysm. No retroperitoneal masses or adenopathy. BOWEL AND PERITONEAL CAVITY: No obvious masses or inflammatory changes. No free fluid. APPENDIX: Normal. PELVIS, BLADDER, AND ABDOMINAL WALL:No abnormal masses. No free fluid. Bladder normal. BONES: No significant findings. OTHER: No other significant finding. IMPRESSION: NO SIGNIFICANT OR ACUTE PROCESS IN THE ABDOMEN OR PELVIS. COMMENT: Quality ID # [id number]: Final reports with documentation of one or more dose reduction techniques (e.g., Automated exposure control, adjustment of the mA and/or kV according to patient size, use of iterative reconstruction technique) TECHNICAL DOCUMENTATION: JOB ID: [id number]- All Rights Reserved Reading location - IP/workstation name: [email or web address]
[2017-11-23 12:06] LABS: URINE AMPHETAMINES SCREEN NEGATIVE; URINE BARBITURATES SCREEN NEGATIVE; URINE BENZODIAZEPINES SCREEN NEGATIVE; URINE COCAINE SCREEN NEGATIVE; URINE MARIJUANA (THC) SCREEN UNCONFIRMED POSITIVE; URINE METHADONE SCREEN NEGATIVE; URINE PHENCYCLIDINE SCREEN NEGATIVE
[2017-11-23 12:10] LABS: APPEARANCE,URINE CLEAR; BILIRUBIN,URINE NEGATIVE (NEGATIVE); COLOR,URINE STRAW; GLUCOSE, URINE 50 mg/dL (NEGATIVE); KETONES,URINE TRACE mg/dL (NEGATIVE); LEUKOCYTE ESTERASE,URINE NEGATIVE (NEGATIVE); NITRITE,URINE NEGATIVE (NEGATIVE); PROTEIN,URINE NEGATIVE (NEGATIVE); URINE SPECIFIC GRAVITY 1.012; UROBILINOGEN,URINE NEGATIVE mg/dL (<2.0)
[2017-11-23 12:48] VITALS: BP 130/69
== END 2017-11-23 12:48 | disposition home or self-care (01) ==
LOC: ER 09:32
DX: F12.188 Cannabis abuse with other cannabis-induced disorder (principal); R11.2 Nausea with vomiting, unspecified; R10.30 Lower abdominal pain, unspecified; F41.9 Anxiety disorder, unspecified
CPT/HCPCS: 99284; 96361; 96374; 96375; 36415; 83690; 85025; 80053; 81001; 80307; 74022; 74176; S0119; J1885; J0780; J7030

== ENCOUNTER 2017-11-30 08:06 | Emergency (ER) | payer OTHER ==
--- NOTE | 2017-11-30 08:13 | ER Document Report ---
ED GI/ - General Chief Complaint: Abdominal Pain Stated Complaint: ABDOMINAL PAIN Time Seen by Provider: 11/30/17 08:13 Mode of Arrival: Ambulatory Information source: Patient Notes: 32 yo smoke marijuana every other day, non etoh, no drugs male , [employer] c/o sudden onset stomach pain at 0500 sharp woke him up midline, diarrhe, no blood, vomited a lot, nausea. PMH: negative, no surgies. This is 3rd episode to er for this. Was told on his 11-23 visit that it was suspected due to the marijuana use. CT, xrays and labs are always normal. He states that he states he has been told that everything is always normal. TRAVEL OUTSIDE OF THE [place] IN LAST 30 DAYS: No - Related Data Allergies/Adverse Reactions: No Known Allergies Allergy (Verified 11/30/17 08:10) Past Medical History - General Information source: Patient - Social History Smoking Status: Current Some Day Smoker - marijuana every other day Frequency of alcohol use: None Drug Abuse: Marijuana Occupation: Latest Medical worker Family History: Reviewed & Not Pertinent - Past Medical History Cardiac Medical History: Reports: Hx DVT - 2011 in right calf Renal/ Medical History: Denies: Hx Peritoneal Dialysis - Immunizations Hx Diphtheria, Pertussis, Tetanus Vaccination: No Review of Systems - Review of Systems Constitutional: No symptoms reported EENT: No symptoms reported Cardiovascular: No symptoms reported Respiratory: No symptoms reported Gastrointestinal: See HPI Genitourinary: No symptoms reported Male Genitourinary: No symptoms reported Musculoskeletal: No symptoms reported Skin: No symptoms reported Hematologic/Lymphatic: No symptoms reported Neurological/Psychological: No symptoms reported Physical Exam - Vital signs Vitals: Pulse Resp BP Pulse Ox 92 30 H 156/111 H 100 11/30/17 08:16 11/30/17 08:16 11/30/17 08:16 11/30/17 08:16 Interpretation: Hypertensive Notes: pt is hyperventilating and shivering, curled up in ball on right side asking for warm blankets - General General appearance: Alert, Anxious - HEENT Head: Normocephalic, Atraumatic Eyes: Normal Conjunctiva: Normal Pupils: PERRL Mucous membranes: Normal Neck: Supple - Respiratory Respiratory status: No respiratory distress Chest status: Nontender Breath sounds: Normal Chest palpation: Normal - Cardiovascular Rhythm: Regular Heart sounds: Normal auscultation Murmur: No - Abdominal Inspection: Normal Distension: No distension Bowel sounds: Normal Tenderness: Tender - when I distract him his abd is soft Organomegaly: No organomegaly - Back Back: Normal, Nontender - Extremities General upper extremity: Normal inspection, Nontender, Normal color, Normal ROM , Normal temperature General lower extremity: Normal inspection, Nontender, Normal color, Normal ROM , Normal temperature, Normal weight bearing. No: Eyad's sign - Neurological Neuro grossly intact: Yes Cognition: Normal Orientation: AAOx4 Jammie Coma Scale Eye Opening: Spontaneous Jammie Coma Scale Verbal: Oriented [place] Coma Scale Motor: Obeys Commands Jammie Coma Scale Total: 15 Speech: Normal Motor strength normal: LUE, RUE, LLE, RLE Sensory: Normal - Psychological Associated symptoms: Normal mood, Anxious - Skin Skin Temperature: Warm Skin Moisture: Dry Skin Color: Normal Course - Re-evaluation Re-evalutation: 11/30/17 09:43 urine had 2 stickers so lab cancelled the urinalysis 11/30/17 12:47 Patient has no pain at this time. His abdomen is soft, nontender, with active bowel sounds. Vital signs are stable. He feels like he can go home. Just jumped out of bed to go urinate again. There is been no vomiting or diarrhea. He is willing to try the capsaicin to see if that helps and I did discuss marijuana use but he states that has nothing to do with the marijuana that is due to what he eats. White count is mildly elevated, urinalysis shows dilute urine of 1.006, chemistry is basically normal. He does not need a note for work. 11/30/17 12:52 11/30/17 12:52 - Vital Signs Vital signs: Temp Pulse Resp BP Pulse Ox 98.8 F 72 18 130/68 H 99 11/30/17 12:13 11/30/17 12:13 11/30/17 12:13 11/30/17 12:13 11/30/17 12:13 - Laboratory Result Diagrams: 11/30/17 10:40 11/30/17 10:40 Laboratory results interpreted by me: 11/30/17 11/30/17 10:40 10:40 WBC 12.7 H Seg Neuts % (Manual) 85 H Lymphocytes % (Manual) 12 L Monocytes % (Manual) 2 L Abs Neuts (Manual) 10.8 H Glucose 119 H Calcium 10.3 H ALT 15 L Total Protein 8.8 H Albumin 5.3 H Discharge - Discharge Clinical Impression: Vomiting and diarrhea, Abdominal pain, Marijuana abuse Condition: Good Disposition: HOME, SELF-CARE Instructions: Abdominal Pain ([facility]), Antinausea Medication ([facility]), Reglan ([facility]), Toradol Injection ([facility]) Additional Instructions: Recommendation is to stop smoking the marijuana this may add into vomiting and diarrhea Capsaicin can be a topical rub to help with abdominal pain you might want to read about it. Return to the emergency room any concerns Drink plenty of fluids today to rehydrate.
[2017-11-30] MEDS ORDERED: ONDANSETRON 4 MG TAB.RAPDIS PO ONE (08:14)
[2017-11-30] MEDS ORDERED: RINGERS SOLUTION,LACTATED 1,000 ML IV ONE (08:14)
[2017-11-30] MEDS ORDERED: METOCLOPRAMIDE HCL INJ/PF 10 MG/2 ML SDV IV ONE (08:56)
[2017-11-30] MEDS ORDERED: KETOROLAC TROMETHAMINE INJ/PF 30 MG/1 ML SDV IV ONE (08:56)
[2017-11-30] MEDS ORDERED: DIPHENHYDRAMINE HCL 50 MG/ML VIAL IV ONE (08:56)
[2017-11-30] MEDS ORDERED: CAPSAICIN 0.025% CREAM 60 GM TP ONE (09:02)
[2017-11-30 11:08] LABS: HEMATOCRIT 46.1 % (37.9-51.0); HEMOGLOBIN 15.9 g/dL (13.5-17.0); MEAN CORPUSCULAR HEMOGLOBIN 31.6 pg (27.0-33.4); MEAN CORPUSCULAR HGB CONC 34.5 g/dL (32.0-36.0); MEAN CORPUSCULAR VOLUME 92 fl (80-97); PLATELET COUNT 201 10^3/uL (150-450); RED BLOOD COUNT 5.03 10^6/uL (4.35-5.55); RED CELL DISTRIBUTION WIDTH 13.4 % (11.5-14.0); WHITE BLOOD COUNT 12.7 10^3/uL (4.0-10.5)
[2017-11-30 11:25] LABS: ABSOLUTE LYMPHOCYTES# (MANUAL) 1.5 10^3/uL (0.5-4.7); ABSOLUTE MONOCYTES # (MANUAL) 0.3 10^3/uL (0.1-1.4); ABSOLUTE NEUTROPHILS# (MANUAL) 10.8 10^3/uL (1.7-8.2); BASOPHILS % (MANUAL) 0 % (0-2); EOSINOPHILS % (MANUAL) 1 % (0-6); LYMPHOCYTES % (MANUAL) 12 % (13-45); MONOCYTES % (MANUAL) 2 % (3-13); SEGMENTED NEUTROPHILS % (MAN) 85 % (42-78); TOTAL CELLS COUNTED 100
[2017-11-30 11:26] LABS: RBC MORPHOLOGY COMMENT NORMO-CYTIC/CHROMIC; TOXIC VACUOLATION PRESENT
[2017-11-30 11:27] LABS: PLATELET CLUMPS PRESENT; PLATELET COMMENT ADEQUATE; PLATELET LARGE PRESENT
[2017-11-30 11:28] LABS: ALANINE AMINOTRANSFERASE 15 U/L (21-72); ALBUMIN 5.3 g/dL (3.5-5.0); ALKALINE PHOSPHATASE 56 U/L (38-126); ANION GAP 13 (5-19); ASPARTATE AMINO TRANSFERASE 27 U/L (17-59); BILIRUBIN,DIRECT 0.4 mg/dL (0.0-0.4); BILIRUBIN,TOTAL 1.3 mg/dL (0.2-1.3); BLOOD UREA NITROGEN 11 mg/dL (7-20); CALCIUM 10.3 mg/dL (8.4-10.2); CARBON DIOXIDE 27 mmol/L (22-30); CHLORIDE 103 mmol/L (98-107); GLUCOSE 119 mg/dL (75-110); LIPASE 76.7 U/L (23-300); POTASSIUM 3.7 mmol/L (3.6-5.0); TOTAL PROTEIN 8.8 g/dL (6.3-8.2)
[2017-11-30 12:13] VITALS: BP 130/68
[2017-11-30 12:17] LABS: APPEARANCE,URINE CLEAR; BILIRUBIN,URINE NEGATIVE (NEGATIVE); COLOR,URINE COLORLESS; GLUCOSE, URINE NEGATIVE (NEGATIVE); KETONES,URINE NEGATIVE (NEGATIVE); LEUKOCYTE ESTERASE,URINE NEGATIVE (NEGATIVE); NITRITE,URINE NEGATIVE (NEGATIVE); PROTEIN,URINE NEGATIVE (NEGATIVE); URINE SPECIFIC GRAVITY 1.008; UROBILINOGEN,URINE NEGATIVE mg/dL (<2.0)
[2017-11-30 12:32] LABS: URINE AMPHETAMINES SCREEN NEGATIVE; URINE BARBITURATES SCREEN NEGATIVE; URINE BENZODIAZEPINES SCREEN NEGATIVE; URINE COCAINE SCREEN NEGATIVE; URINE MARIJUANA (THC) SCREEN UNCONFIRMED POSITIVE; URINE METHADONE SCREEN NEGATIVE; URINE PHENCYCLIDINE SCREEN NEGATIVE
== END 2017-11-30 13:29 | disposition home or self-care (01) ==
LOC: ER 08:06
DX: R10.9 Unspecified abdominal pain (principal); R11.2 Nausea with vomiting, unspecified; R19.7 Diarrhea, unspecified; F12.10 Cannabis abuse, uncomplicated; R06.4 Hyperventilation
CPT/HCPCS: 99284; 96361; 96374; 96375; 36415; 83690; 85025; 80053; 81001; 80307; S0119; J3490; J1885; J2765; J7120

== ENCOUNTER 2018-12-26 19:11 | Emergency (ER) | payer OTHER ==
[2018-12-26] MEDS ORDERED: ONDANSETRON 4 MG TAB.RAPDIS PO ONE (19:42)
[2018-12-26] MEDS ORDERED: DICYCLOMINE HCL 20 MG TABLET PO ONE (19:42)
--- NOTE | 2018-12-26 19:43 | ER Document Report ---
HPI - HPI Time Seen by Provider: 12/26/18 19:36 Past Medical History - Social History Family History: Reviewed & Not Pertinent - Past Medical History Cardiac Medical History: Reports: Hx DVT - 2011 in right calf Renal/ Medical History: Denies: Hx Peritoneal Dialysis - Immunizations Hx Diphtheria, Pertussis, Tetanus Vaccination: No Vertical Provider Document - INFECTION CONTROL TRAVEL OUTSIDE OF THE [place] IN LAST 30 DAYS: No Course - Vital Signs Vital signs: Temp Pulse Resp BP Pulse Ox 98.5 F 74 175/113 H 100 12/26/18 19:18 12/26/18 19:18 12/26/18 19:18 12/26/18 19:18
[2018-12-26] MEDS ORDERED: NORMAL SALINE 1000 ML 1,000 ML IV ONE (19:44)
--- NOTE | 2018-12-26 19:48 | ER Document Report ---
ED Medical Screen (RME) - General Chief Complaint: Abdominal Pain Stated Complaint: EXTREME STOMACH PAIN Time Seen by Provider: 12/26/18 19:36 Notes: Patient is a 33-year-old male who presents to the emergency department with a chief complaint of abdominal pain. Patient states that his pain started around 5:00 this morning. Patient states that he has had some vomiting and diarrhea. Patient is inquiring about possibly being diagnosed with Crohn's disease. Patient has had this problem before. Patient has not followed up with a GI doctor. Patient denies any hematemesis or hematochezia. Patient does admit to marijuana use. He states he has been using marijuana for a long time. Patient also states that he ate some ice cream last night. He states he took some Kaopectate and said it did not help. Patient is lactose intolerant. Exam: Tenderness to general abdomen. I have greeted and performed a rapid initial assessment of this patient. A comprehensive ED assessment and evaluation of the patient, analysis of test results and completion of medical decision making process will be conducted by an additional ED providers. TRAVEL OUTSIDE OF THE [place] IN LAST 30 DAYS: No - Related Data Allergies/Adverse Reactions: No Known Allergies Allergy (Verified 11/30/17 08:10) Past Medical History - Social History Chew tobacco use (# tins/day): No Frequency of alcohol use: None Drug Abuse: Marijuana - Past Medical History Cardiac Medical History: Reports: Hx DVT - 2011 in right calf Renal/ Medical History: Denies: Hx Peritoneal Dialysis - Immunizations Hx Diphtheria, Pertussis, Tetanus Vaccination: No Physical Exam - Vital signs Vitals: Temp Pulse BP Pulse Ox 98.5 F 74 175/113 H 100 12/26/18 19:18 12/26/18 19:18 12/26/18 19:18 12/26/18 19:18 Course - Vital Signs Vital signs: Temp Pulse Resp BP Pulse Ox 98.5 F 74 175/113 H 100 12/26/18 19:18 12/26/18 19:18 12/26/18 19:18 12/26/18 19:18
[2018-12-26 20:17] LABS: ABSOLUTE BASOPHILS # (AUTO) 0.1 10^3/uL (0.0-0.2); ABSOLUTE MONOCYTES (AUTO) 0.4 10^3/uL (0.1-1.4); ABSOLUTE NEUT (AUTO) 12.8 10^3/uL (1.7-8.2); BASOPHILS % (AUTO) 0.5 % (0-2); HEMATOCRIT 48.6 % (37.9-51.0); HEMOGLOBIN 16.4 g/dL (13.5-17.0); LYMPHOCYTES % (AUTO) 6.8 % (13-45); MEAN CORPUSCULAR HGB CONC 33.8 g/dL (32.0-36.0); MEAN CORPUSCULAR VOLUME 92 fl (80-97); MONOCYTES % (AUTO) 2.9 % (3-13); PLATELET COUNT 191 10^3/uL (150-450); SEGMENTED NEUTROPHILS % (AUTO) 89.8 % (42-78); TOTAL CELLS COUNTED % (AUTO) 100 %; WHITE BLOOD COUNT 14.2 10^3/uL (4.0-10.5)
[2018-12-26 20:39] LABS: ALBUMIN 5.1 g/dL (3.5-5.0); ALKALINE PHOSPHATASE 70 U/L (38-126); ANION GAP 16 (5-19); ASPARTATE AMINO TRANSFERASE 30 U/L (17-59); BILIRUBIN,DIRECT 0.1 mg/dL (0.0-0.4); BILIRUBIN,TOTAL 0.8 mg/dL (0.2-1.3); BLOOD UREA NITROGEN 9 mg/dL (7-20); CALCIUM 10.6 mg/dL (8.4-10.2); CARBON DIOXIDE 24 mmol/L (22-30); CHLORIDE 100 mmol/L (98-107); GLUCOSE 128 mg/dL (75-110); TOTAL PROTEIN 8.9 g/dL (6.3-8.2)
[2018-12-26 22:44] LABS: APPEARANCE,URINE CLEAR; BILIRUBIN,URINE NEGATIVE (NEGATIVE); COLOR,URINE YELLOW; GLUCOSE, URINE NEGATIVE (NEGATIVE); KETONES,URINE TRACE mg/dL (NEGATIVE); LEUKOCYTE ESTERASE,URINE NEGATIVE (NEGATIVE); NITRITE,URINE NEGATIVE (NEGATIVE); PROTEIN,URINE 30 mg/dL (NEGATIVE); URINE SPECIFIC GRAVITY 1.027; UROBILINOGEN,URINE NEGATIVE mg/dL (<2.0)
[2018-12-26 22:54] LABS: URINE AMPHETAMINES SCREEN NEGATIVE; URINE BARBITURATES SCREEN NEGATIVE; URINE BENZODIAZEPINES SCREEN NEGATIVE; URINE COCAINE SCREEN NEGATIVE; URINE METHADONE SCREEN NEGATIVE; URINE PHENCYCLIDINE SCREEN NEGATIVE
[2018-12-26 22:55] LABS: URINE MARIJUANA (THC) SCREEN UNCONFIRMED POSITIVE
[2018-12-26] MEDS ORDERED: MORPHINE SULFATE 10 MG/ML INJ IV ONE (22:56)
--- NOTE | 2018-12-26 23:00 | ER Document Report ---
ED GI/ - General Chief Complaint: Abdominal Pain Stated Complaint: EXTREME STOMACH PAIN Time Seen by Provider: 12/26/18 19:36 Mode of Arrival: Ambulatory Information source: Patient Notes: Patient is a 33-year-old male who presents to the emergency department with a chief complaint of abdominal pain. Patient states that his pain started around 5:00 this morning. Patient states that he has had some vomiting and diarrhea. Patient is inquiring about possibly being diagnosed with Crohn's disease. Patient has had this problem before. Patient has not followed up with a GI doctor. Patient denies any hematemesis or hematochezia. Patient does admit to marijuana use. He states he has been using marijuana for a long time. Patient also states that he ate some ice cream last night. He states he took some Kaopectate and said it did not help. Patient is lactose intolerant. TRAVEL OUTSIDE OF THE [place] IN LAST 30 DAYS: No - Related Data Allergies/Adverse Reactions: No Known Allergies Allergy (Verified 11/30/17 08:10) Past Medical History - General Information source: Patient - Social History Smoking Status: Current Every Day Smoker Chew tobacco use (# tins/day): No Frequency of alcohol use: None Drug Abuse: Marijuana Family History: Reviewed & Not Pertinent Patient has suicidal ideation: No Patient has homicidal ideation: No - Past Medical History Cardiac Medical History: Reports: Hx DVT - 2011 in right calf Renal/ Medical History: Denies: Hx Peritoneal Dialysis - Immunizations Hx Diphtheria, Pertussis, Tetanus Vaccination: No Review of Systems - Review of Systems Constitutional: No symptoms reported. denies: Fever EENT: No symptoms reported Cardiovascular: No symptoms reported Respiratory: No symptoms reported Gastrointestinal: Abdominal pain, Nausea, Vomiting Genitourinary: No symptoms reported Male Genitourinary: No symptoms reported Musculoskeletal: No symptoms reported Skin: No symptoms reported Hematologic/Lymphatic: No symptoms reported Neurological/Psychological: No symptoms reported Physical Exam - Vital signs Vitals: Temp Pulse BP Pulse Ox 98.5 F 74 175/113 H 100 12/26/18 19:18 12/26/18 19:18 12/26/18 19:18 12/26/18 19:18 - Notes Notes: PHYSICAL EXAMINATION: GENERAL: Well-appearing, well-nourished and in no acute distress. HEAD: Atraumatic, normocephalic. EYES: Pupils equal round and reactive to light, extraocular movements intact, sclera anicteric, conjunctiva are normal. ENT: Nares patent, oropharynx clear without exudates. Moist mucous membranes. NECK: Normal range of motion, supple without lymphadenopathy LUNGS: Breath sounds clear to auscultation bilaterally and equal. No wheezes rales or rhonchi. HEART: Regular rate and rhythm without murmurs ABDOMEN: Soft, nondistended abdomen. Generalized tenderness to palpation. No guarding, no rebound. No masses appreciated. No CVA tenderness. Musculoskeletal: Normal range of motion, no pitting or edema. No cyanosis. NEUROLOGICAL: Cranial nerves grossly intact. Normal speech, normal gait. Nor mal sensory, motor exams PSYCH: Normal mood, normal affect. SKIN: Warm, Dry, normal turgor, no rashes or lesions noted. Course - Re-evaluation Re-evalutation: Laboratory 12/26/18 12/26/18 12/26/18 20:02 20:02 20:06 WBC 14.2 H RBC 5.30 Hgb 16.4 Hct 48.6 MCV 92 MCH 31.0 MCHC 33.8 RDW 13.0 Plt Count 191 Lymph % (Auto) 6.8 L [place] % (Auto) 2.9 L Eos % (Auto) 0.0 Baso % (Auto) 0.5 Absolute Neuts (auto) 12.8 H Absolute Lymphs (auto) 1.0 Absolute Monos (auto) 0.4 Absolute Eos (auto) 0.0 Absolute Basos (auto) 0.1 Seg Neutrophils % 89.8 H Sodium 139.5 Potassium 4.0 Chloride 100 Carbon Dioxide 24 Anion Gap 16 BUN 9 Creatinine 0.79 Est GFR ( Amer) > 60 Est GFR (MDRD) Non-Af > 60 Glucose 128 H Calcium 10.6 H Total Bilirubin 0.8 Direct Bilirubin 0.1 Neonat Total Bilirubin Not Reportable Neonat Direct Bilirubin Not Reportable Neonat Indirect Bili Not Reportable AST 30 ALT 22 Alkaline Phosphatase 70 Total Protein 8.9 H Albumin 5.1 H Lipase 650.3 H Urine Color YELLOW Urine Appearance CLEAR Urine pH 6.0 Ur Specific [place] 1.027 Urine Protein 30 H Urine Glucose (UA) NEGATIVE Urine Ketones TRACE H Urine Blood NEGATIVE Urine Nitrite NEGATIVE Urine Bilirubin NEGATIVE Urine Urobilinogen NEGATIVE Ur Leukocyte Esterase NEGATIVE Urine WBC (Auto) 5 Urine RBC (Auto) 4 U Hyaline Cast (Auto) 1 Squamous Epi Cells Auto <1 Urine Mucus (Auto) MOD Urine Ascorbic Acid 20 H Urine Opiates Screen Urine Methadone Screen Ur Barbiturates Screen Ur Phencyclidine Scrn Ur Amphetamines Screen U Benzodiazepines Scrn Urine Cocaine Screen U Marijuana (THC) Screen 12/26/18 20:06 WBC RBC Hgb Hct MCV MCH MCHC RDW Plt Count Lymph % (Auto) [place] % (Auto) Eos % (Auto) Baso % (Auto) Absolute Neuts (auto) Absolute Lymphs (auto) Absolute Monos (auto) Absolute Eos (auto) Absolute Basos (auto) Seg Neutrophils % Sodium Potassium Chloride Carbon Dioxide Anion Gap BUN Creatinine Est GFR ( Amer) Est GFR (MDRD) Non-Af Glucose Calcium Total Bilirubin Direct Bilirubin Neonat Total Bilirubin Neonat Direct Bilirubin Neonat Indirect Bili AST ALT Alkaline Phosphatase Total Protein Albumin Lipase Urine Color Urine Appearance Urine pH Ur Specific [place] Urine Protein Urine Glucose (UA) Urine Ketones Urine Blood Urine Nitrite Urine Bilirubin Urine Urobilinogen Ur Leukocyte Esterase Urine WBC (Auto) Urine RBC (Auto) U Hyaline Cast (Auto) Squamous Epi Cells Auto Urine Mucus (Auto) Urine Ascorbic Acid Urine Opiates Screen NEGATIVE Urine Methadone Screen NEGATIVE Ur Barbiturates Screen NEGATIVE Ur Phencyclidine Scrn NEGATIVE Ur Amphetamines Screen NEGATIVE U Benzodiazepines Scrn NEGATIVE Urine Cocaine Screen NEGATIVE U Marijuana (THC) Screen UNCONFIRMED POSITIVE Abdomen/Pelvis CT 12/26/18 22:57 IMPRESSION: No acute findings. Normal appendix. TECHNICAL DOCUMENTATION: Quality ID # 436: Final reports with documentation of one or more dose reduction techniques (e.g., Automated exposure control, adjustment of the mA and/or kV according to patient size, use of iterative reconstruction technique) copyright 2011 [employer]- All Rights Reserved Results as outlined above. Patient appears well, nontoxic, states pain medication is helped his pain. Appendix appears normal on CT. patient did have a nonspecific leukocytosis however patient has been vomiting all day. He does not appear to be septic or toxic. His abdomen is now soft and nontender. Likely viral gastroenteritis. Patient given strict ED return precautions. He will be discharged home with antiemetics. Patient is in agreement with this plan. The patient's emergency department workup and current diagnosis were explained to the patient and or family. Follow-up instructions were provided. Medications if prescribed were discussed. Instructions for when to return to the emergency department including specific worrisome symptoms were discussed with the patient and/or family. - Vital Signs Vital signs: Temp Pulse Resp BP Pulse Ox 98.4 F 79 16 149/91 H 97 12/27/18 04:29 12/27/18 04:29 12/27/18 04:29 12/27/18 04:29 12/27/18 04:00 - Laboratory Result Diagrams: 12/26/18 20:02 12/26/18 20:02 Laboratory results interpreted by me: 12/26/18 12/26/18 12/26/18 20:02 20:02 20:06 WBC 14.2 H Lymph % (Auto) 6.8 L [place] % (Auto) 2.9 L Absolute Neuts (auto) 12.8 H Seg Neutrophils % 89.8 H Glucose 128 H Calcium 10.6 H Total Protein 8.9 H Albumin 5.1 H Lipase 650.3 H Urine Protein 30 H Urine Ketones TRACE H Urine Ascorbic Acid 20 H Discharge - Discharge Clinical Impression: Nausea vomiting and diarrhea Abdominal pain Qualifiers: Abdominal location: generalized Qualified Code(s): R10.84 - Generalized abdominal pain Condition: Stable Disposition: HOME, SELF-CARE Instructions: Abdominal Pain ([facility]), Vomiting ([facility]) Additional Instructions: You were seen in the emergency department today with complaints of abdominal pain, nausea, vomiting. The CAT scan was performed and does not show any life- threatening findings. Please take nausea medications as prescribed. Please pu sh fluids. Eat a bland diet. Please follow-up with primary care in 1 to 2 days for recheck. Return to the emergency department with any new or worsening symptoms. Prescriptions: Promethazine HCl [Phenergan 25 mg Tablet] 1 - 2 tab PO Q6H PRN #15 tablet PRN Reason:
--- NOTE | 2018-12-27 01:11 | RADIOLOGY REPORT (SQ) ---
EXAM DESCRIPTION: CT ABDOMEN PELVIS WITH IV CONTRAST COMPLETED DATE/TME: 12/26/2018 22:57 CLINICAL HISTORY: 33 years, Male, abd pain, leukocytosis COMPARISON: 11/23/2017 TECHNIQUE: Axial CT images of the abdomen and pelvis were obtained after the administration of IV contrast. Sagittal and coronal reformats were performed. DLP 583 Images stored on PACS. All CT scanners at this facility use dose modulation, iterative reconstruction, and/or weight based dosing when appropriate to reduce radiation dose to as low as reasonably achievable (ALARA). [facility]: Dose Right [facility]: CareDose [facility]: Dose Right [facility]: Teradose 4D [facility]: Smart 3sun LIMITATIONS: None. FINDINGS: The lung bases are clear. The liver, gallbladder, pancreas, spleen, and adrenal glands are unremarkable. Both kidneys enhance normally. No evidence of hydronephrosis. There is no intraperitoneal free air or fluid. There is no lymphadenopathy. The abdominal aorta is normal in caliber. The stomach and small bowel are unremarkable. The appendix is normal. The colon appears unremarkable. The urinary bladder and prostate gland are unremarkable. There are no lytic or blastic bone lesions. IMPRESSION: No acute findings. Normal appendix. TECHNICAL DOCUMENTATION: Quality ID # 436: Final reports with documentation of one or more dose reduction techniques (e.g., Automated exposure control, adjustment of the mA and/or kV according to patient size, use of iterative reconstruction technique) copyright 2011 [employer]- All Rights Reserved
[2018-12-27] MEDS ORDERED: FAMOTIDINE INJ/PF 20 MG/2 ML SDV IV ONE (02:44)
[2018-12-27] MEDS ORDERED: MORPHINE SULFATE 10 MG/ML INJ IV ONE (02:44)
[2018-12-27 04:28] VITALS: BP 149/91
== END 2018-12-27 04:29 | disposition home or self-care (01) ==
LOC: ER 19:11
DX: R10.84 Generalized abdominal pain (principal); R11.2 Nausea with vomiting, unspecified; R19.7 Diarrhea, unspecified; F17.200 Nicotine dependence, unspecified, uncomplicated; Z86.718 Personal history of other venous thrombosis and embolism
CPT/HCPCS: 96376; 99284; 96361; 96374; 96375; 36415; 83690; 85025; 80053; 81001; 80307; 74177; J3490; S0119; J2270 ×2; J7030; S0028

== ENCOUNTER 2018-12-28 08:01 | Emergency (ER) | payer OTHER ==
[2018-12-28] MEDS ORDERED: HYDROMORPHONE HCL INJ/PF 2 MG/ML AMPULE IV ONE (08:37)
[2018-12-28] MEDS ORDERED: NORMAL SALINE 1000 ML 1,000 ML IV ONE (08:37)
[2018-12-28] MEDS ORDERED: ONDANSETRON HCL INJ/PF 4 MG/2 ML SDV IV ONE (08:37)
--- NOTE | 2018-12-28 08:42 | ER Document Report ---
ED GI/ - General Chief Complaint: Abdominal Pain Stated Complaint: ABDOMINAL PAIN/VOMITING Information source: Patient TRAVEL OUTSIDE OF THE [place] IN LAST 30 DAYS: No - HPI Patient complains to provider of: Abdominal pain, Vomiting. No: Diarrhea, Dysuria, Feeding tube problem, Flank pain, Caldwell catheter problem, Groin pain, Hematuria, Testicular pain, Urinary retention, Other Onset: - wednesday Timing/Duration: Gradual. denies: Sudden, Constant, Intermittent, Persistent, Waxing and waning, Better, Worse, Gone Quality of pain: Achy, Cramping. denies: No pain, Burning, Dull, Fullness, Pressure, Sharp, Stabbing, Throbbing, Other Severity at maximum: Moderate Severity in ED: Moderate Pain Level: 3 Context: denies: Bad food, Lifting, Out of the country travel, , Recent trauma, Other Location: LUQ. No: Chest pain, Epigastric, LLQ, RUQ, RLQ, Left flank, Right flank, Low back, Suprapubic, Pelvis, Left testicle, Right testicle, Rectal, Other Associated symptoms: Vomiting. denies: None, Blood in emesis, Blood in stool, Chest pain, Chills, Coffee ground emesis, Constipation, Diarrhea, Dizzy, Dysuria, Erection problem, Fever, Foreskin problem, Hard stool, Hematuria, Hematospermia, Hurts to breath, Inguinal mass, Lightheaded, Loss of appetite, Nausea, Painful intercourse, Penile discharge, Radiates to back, Radiates to chest, Radiates to testicles, Radiates to shoulder, Shortness of breath, Sweaty, Syncope, Urinary hesitancy, Urinary frequency, Urinary retention, Urinary urgency, Other Exacerbated by: Food. denies: Denies, Supine, Sitting, Standing, Movement, Walking, Coughing, Deep breathing, Other Similar symptoms previously: Yes - Patient was seen yesterday jaramillo Notes: 12/28/18 08:41 Patient was seen here in emergency department yesterday had a CT of the abdomen pelvis read as negative by the radiologist labs did show a white count of 14 and a lipase of 650 otherwise labs were unremarkable. He was sent home with Phenergan only he was not able to get to the store he said and abdominal pain is about the same as yesterday. I believe he probably still has a pancreatitis and we will go ahead check labs. And give him some fluids and IV pain medicine and nausea medicine. - Related Data Allergies/Adverse Reactions: No Known Allergies Allergy (Verified 11/30/17 08:10) Past Medical History - Social History Smoking Status: Former Smoker Cigarette use (# per day): No Frequency of alcohol use: None Drug Abuse: Marijuana Family History: Reviewed & Not Pertinent Patient has suicidal ideation: No Patient has homicidal ideation: No - Past Medical History Cardiac Medical History: Reports: Hx DVT - 2011 in right calf Renal/ Medical History: Denies: Hx Peritoneal Dialysis - Immunizations Hx Diphtheria, Pertussis, Tetanus Vaccination: No Review of Systems - Review of Systems Constitutional: denies: No symptoms reported, See HPI, Chills, Diaphoresis, Fever, Malaise, Weakness, Other, Weight gain, Weight loss, Recent illness EENT: denies: No symptoms reported, See HPI, Eye pain, Eye discharge, Blurred vision, Tearing, Double vision, Ear pain, Ear discharge, Nose pain, Nose congestion, Nose discharge, Sinus pressure, Sinus discharge, Throat pain, Difficulty swallowing, Throat swelling, Mouth pain, Mouth swelling, Dental problem, Vertigo, Other Cardiovascular: denies: No symptoms reported, See HPI, Chest pain, Palpitations, Heart racing, Orthopnea, Dyspnea, Syncope, Dizziness, Lightheaded, Edema, Other, Paroxysmal Nocturnal Dysp Respiratory: denies: No symptoms reported, See HPI, Cough, Hurts to breathe, Hemoptysis, Short of breath, Sputum, Stridor, Wheezing, Other Gastrointestinal: Abdominal pain, Vomiting. denies: No symptoms reported, See HPI, Abdomen distended, Diarrhea, Nausea, Constipation, Blood streaked bowels, Poor appetite, Poor fluid intake, Blood in vomit, Black stools, Rectal bleeding, Last bowel movement, Fecal incontinence, Other Genitourinary: denies: No symptoms reported, See HPI, Burning, Dysuria, Discharge, Frequency, Flank pain, Hematuria, Incontinence, Pain, Urgency, Retention, Other Male Genitourinary: denies: No symptoms reported, See HPI, Erectile dysfunction, Testicular pain, Penile discharge, Other Neurological/Psychological: denies: No symptoms reported, See HPI, Confusion, Dementia, Depression, Hallucinations, Anxiety, Homicidal ideation, Sensory change, Weakness, Gait changes, Loss of power, Paralysis, Seizure, Lost consciousness, Headaches, Speech impairment, Numbness, Suicidal ideation, Tingling, Tremor, Other -: Yes All other systems reviewed and negative Physical Exam - Vital signs Vitals: Temp Pulse Resp BP Pulse Ox 97.5 F 77 20 187/140 H 100 12/28/18 08:05 12/28/18 08:05 12/28/18 08:05 12/28/18 08:05 12/28/18 08:05 Notes: PHYSICAL EXAMINATION: GENERAL: Well-appearing, well-nourished and in no acute distress. HEAD: Atraumatic, normocephalic. EYES: Pupils equal round and reactive to light, extraocular movements intact, sclera anicteric, conjunctiva are normal. ENT: nares patent, oropharynx clear without exudates. Moist mucous membranes. NECK: Normal range of motion, supple without lymphadenopathy LUNGS: Breath sounds clear to auscultation bilaterally and equal. No wheezes rales or rhonchi. HEART: Regular rate and rhythm without murmurs ABDOMEN: Soft, tenderness in the left upper quadrant. BS all sounds all quadrants. No guarding, no rebound. No masses appreciated. EXTREMITIES: Normal range of motion, no pitting or edema. No cyanosis. NEUROLOGICAL: No focal neurological deficits. Moves all extremities spon taneously and on command. PSYCH: Normal mood, normal affect. SKIN: Warm, Dry, normal turgor, no rashes or lesions noted. Course - Vital Signs Vital signs: Temp Pulse Resp BP Pulse Ox 97.5 F 77 20 194/112 H 100 12/28/18 08:05 12/28/18 08:05 12/28/18 08:05 12/28/18 08:17 12/28/18 08:17 - Laboratory Result Diagrams: 12/28/18 08:37 12/28/18 08:37 Laboratory results interpreted by me: 12/28/18 12/28/18 08:37 08:37 WBC 13.8 H Hgb 17.2 H Absolute Neuts (auto) 11.0 H Seg Neutrophils % 79.9 H Calcium 10.3 H - Transfer of Care Notes: 12/28/18 09:29 She is doing much better he will be discharged. His lipase is now 35 so his pancreatitis is better. I told him to use a clear liquid diet for 24 hours and slowly introduce regular food. I will send him home with some Phenergan and some tramadol for pain Discharge - Discharge Clinical Impression: pancreatitis resolved Abdominal pain Qualifiers: Abdominal location: left upper quadrant Qualified Code(s): R10.12 - Left upper quadrant pain Clinical Impression: (Ruled Out): Nausea vomiting and diarrhea Condition: Stable Disposition: HOME, SELF-CARE Additional Instructions: Use a clear liquid diet such as broths and clear fluids Jell-O etc. Introduce regular medications. Return if worse Prescriptions: Promethazine HCl [Phenergan 25 mg Supp.rect] 1 supp MD Q6H #6 supp.rect Tramadol HCl/Acetaminophen [Tramadol-Acetaminophn 37.5-325] 1 each PO Q6 PRN #10 tablet PRN Reason: Pain Scale Of 3
[2018-12-28 08:56] LABS: ABSOLUTE LYMPHOCYTES (AUTO) 1.9 10^3/uL (0.5-4.7); ABSOLUTE MONOCYTES (AUTO) 0.8 10^3/uL (0.1-1.4); BASOPHILS % (AUTO) 0.2 % (0-2); EOSINOPHILS % (AUTO) 0.3 % (0-6); HEMATOCRIT 50.5 % (37.9-51.0); HEMOGLOBIN 17.2 g/dL (13.5-17.0); LYMPHOCYTES % (AUTO) 13.7 % (13-45); MEAN CORPUSCULAR HEMOGLOBIN 31.3 pg (27.0-33.4); MEAN CORPUSCULAR HGB CONC 34.1 g/dL (32.0-36.0); MEAN CORPUSCULAR VOLUME 92 fl (80-97); MONOCYTES % (AUTO) 5.9 % (3-13); PLATELET COUNT 202 10^3/uL (150-450); RED CELL DISTRIBUTION WIDTH 13.1 % (11.5-14.0); SEGMENTED NEUTROPHILS % (AUTO) 79.9 % (42-78); TOTAL CELLS COUNTED % (AUTO) 100 %; WHITE BLOOD COUNT 13.8 10^3/uL (4.0-10.5)
[2018-12-28 09:17] LABS: ALBUMIN 4.6 g/dL (3.5-5.0); ALKALINE PHOSPHATASE 67 U/L (38-126); ANION GAP 13 (5-19); ASPARTATE AMINO TRANSFERASE 30 U/L (17-59); BILIRUBIN,TOTAL 1.3 mg/dL (0.2-1.3); BLOOD UREA NITROGEN 19 mg/dL (7-20); CALCIUM 10.3 mg/dL (8.4-10.2); CARBON DIOXIDE 28 mmol/L (22-30); CHLORIDE 100 mmol/L (98-107); GLUCOSE 104 mg/dL (75-110); POTASSIUM 3.7 mmol/L (3.6-5.0)
[2018-12-28 10:26] VITALS: BP 121/65
== END 2018-12-28 10:54 | disposition home or self-care (01) ==
LOC: ER 08:01
DX: R10.12 Left upper quadrant pain (principal); R10.812 Left upper quadrant abdominal tenderness; R11.11 Vomiting without nausea; T42.6X6A Underdosing of other antiepileptic and sedative-hypnotic drugs, initial encounter; Z91.128 Patient's intentional underdosing of medication regimen for other reason; Z91.14 Patient's other noncompliance with medication regimen; F12.10 Cannabis abuse, uncomplicated; Z87.891 Personal history of nicotine dependence; Z87.19 Personal history of other diseases of the digestive system
CPT/HCPCS: 99284; 96361; 96374; 96375; 36415; 83690; 85025; 80053; J1170; J2405; J7030

== ENCOUNTER 2019-01-08 08:19 | Emergency (ER) | payer OTHER ==
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
[2019-01-08] MEDS ORDERED: IBUPROFEN 800 MG TABLET PO ONE (09:40)
[2019-01-08 09:41] VITALS: BP 137/88
[2019-01-08] MEDS ORDERED: PENICILLIN V POTASSIUM 500 MG TABLET PO ONE (09:41)
== END 2019-01-08 09:57 | disposition home or self-care (01) ==
LOC: ER 08:19
DX: K02.9 Dental caries, unspecified (principal); K08.89 Other specified disorders of teeth and supporting structures; F12.10 Cannabis abuse, uncomplicated
CPT/HCPCS: 99282

== ENCOUNTER 2019-05-02 17:32 | Emergency (ER) | payer OTHER ==
--- NOTE | 2019-05-02 18:26 | ER Document Report ---
ED Medical Screen (RME) - General Chief Complaint: Arm Pain Stated Complaint: LEFT ARM PAIN Time Seen by Provider: 05/02/19 18:21 Primary Care Provider: CHRIS,AUGIE [Primary Care Provider] - Follow up as needed Notes: Patient is a 34-year-old male who presents to the emergency department with a chief complaint of left upper arm pain. Patient states that he has history of DVTs in bilateral lower extremities in the past. Patient was on Coumadin, but "stopped taking it a while ago." Patient states that he has had his pain for the past 3 weeks. Has been trying to use BenGay to help with the pain, but has not had any relief. Exam: Tender left upper arm. I have greeted and performed a rapid initial assessment of this patient. A comprehensive ED assessment and evaluation of the patient, analysis of test results and completion of medical decision making process will be conducted by an additional ED providers. TRAVEL OUTSIDE OF THE [place] 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
--- NOTE | 2019-05-02 19:53 | RADIOLOGY REPORT (SQ) ---
EXAM DESCRIPTION: VENOUS UNILATERAL UPPER COMPLETED DATE/TIME: 05/02/2019 7:43 pm REASON FOR STUDY: LUE pain COMPARISON: None. TECHNIQUE: Dynamic and static otero scale and color images acquired of the left arm venous system. Se lected spectral images acquired with additional compression and augmentation maneuvers. The contralat eral subclavian vein and internal jugular vein were also imaged. Images stored on PACS. LIMITATIONS: None. FINDINGS: INTERNAL JUGULAR VEIN: Normal phasicity, compression, augmentation. No visualized echogeni c material on otero scale. No defects on color images. Comparison opposite side normal. SUBCLAVIAN VEIN: Normal compression, augmentation. No visualized echogenic material on otero scale. No defects on color images. AXILLARY VEIN: Normal compression, augmentation. No visualized echogenic material on otero scale. No d efects on color images. BRACHIAL VEIN: Normal compression, augmentation. No visualized echogenic material on otero scale. No d efects on color images. BASILIC VEIN: Normal compression, augmentation. No visualized echogenic material on otero scale. No de fects on color images. CEPHALIC VEIN: Normal compression, augmentation. No visualized echogenic material on otero scale. No d efects on color images. OTHER: No other significant finding. CONTRALATERAL SUBCLAVIAN VEIN AND INTERNAL JUGULAR VEIN: Normal phasicity, compression and augmentation. No visualized echogenic material on otero scale. No de fects on color images. IMPRESSION: NO EVIDENCE DVT OR SVT IN THE LEFT ARM. TECHNICAL DOCUMENTATION: JOB ID: [id number] 2010 [employer]- All Rights Reserved Reading location - IP/workstation name: [email or web address]
--- NOTE | 2019-05-02 20:47 | ER Document Report ---
ED Extremity Problem, Upper - General Chief Complaint: Arm Pain Stated Complaint: LEFT ARM PAIN Time Seen by Provider: 05/02/19 18:21 Primary Care Provider: AUGIE PEREZ [Primary Care Provider] - Follow up in 1 week Notes: Patient is a 34-year-old male that comes emergency department for chief complaint of left arm and left upper back pain. He states pain starts on the left side of his neck, goes down to the top of his back and shoulder, and then over the side of his shoulder and arm. He states occasionally gets sharp shooting pains. He states he has trouble sleeping because of the pain. He states this started almost 3 weeks ago, intermittently it is worse. He does not recall a specific injury. He is right-handed. He denies any specific swelling, however he states he has a history of DVT in his legs back in 2010 and he just wants to make sure there is no clot. He denies any fever, severe pain, shortness of breath, cough, chest pain, dizziness, headache, or any other reported symptoms. He takes no daily medications. He states he was on Coumadin in the past when he got the 2 blood clots but he has not been on this for 3 years. He takes no daily medications. He denies a medical history is other sheth. He denies any recent travel or surgery. TRAVEL OUTSIDE OF THE [place] IN LAST 30 DAYS: No - Related Data Allergies/Adverse Reactions: No Known Allergies Allergy (Verified 01/08/19 08:23) Past Medical History - General Information source: Patient - Social History Smoking Status: Never Smoker Frequency of alcohol use: Occasional Drug Abuse: Marijuana Lives with: Family Family History: Reviewed & Not Pertinent Patient has suicidal ideation: No Patient has homicidal ideation: No - Past Medical History Cardiac Medical History: Reports: Hx DVT - 2010 in bilateral calf Renal/ Medical History: Denies: Hx Peritoneal Dialysis Surgical Hx: Negative - Immunizations Immunizations up to date: Yes Hx Diphtheria, Pertussis, Tetanus Vaccination: Yes Review of Systems - Review of Systems Constitutional: No symptoms reported EENT: No symptoms reported Cardiovascular: No symptoms reported Respiratory: No symptoms reported Gastrointestinal: No symptoms reported Genitourinary: No symptoms reported Male Genitourinary: No symptoms reported Musculoskeletal: See HPI Skin: No symptoms reported Hematologic/Lymphatic: See HPI Neurological/Psychological: No symptoms reported Physical Exam - Vital signs Vitals: Temp Pulse Resp BP Pulse Ox 98.2 F 64 16 152/103 H 97 05/02/19 17:38 05/02/19 17:38 05/02/19 17:38 05/02/19 17:38 05/02/19 17:38 - Notes Notes: GENERAL: Alert, interacts well. No acute distress. HEAD: Normocephalic, atraumatic. EYES: Pupils equal, round, and reactive to light. Extraocular movements intact. ENT: Oral mucosa moist, tongue midline. Oropharynx unremarkable. Airway patent. NECK: Full range of motion. Supple. Trachea midline. LUNGS: Clear to auscultation bilaterally, no wheezes, rales, or rhonchi. No respiratory distress. HEART: Regular rate and rhythm. No murmur ABDOMEN: Soft, non-tender. Non-distended. EXTREMITIES: Moves all 4 extremities spontaneously. No edema, normal radial and dorsalis pedis pulses bilaterally. No cyanosis. BACK: There is tenderness over the left paracervical musculature, extending into the left trapezius musculature, and extending to the posterior left shoulder. This is reproducible with palpation and with range of motion of the left shoulder. Range of motion is still intact. Normal region manager, normal distal neuro vascular exam. No cervical, thoracic, lumbar midline tenderness. No saddle anesthesia, normal distal neurovascular exam on remaining extremities. NEUROLOGICAL: Alert and oriented x3. Normal speech. Cranial nerves II through XII grossly intact. PSYCH: Normal affect, normal mood. SKIN: Warm, dry, normal turgor. No rashes or lesions noted. Course - Re-evaluation Re-evalutation: There is no swelling of the left arm, there is no erythema, no significant tenderness, normal distal neurovascular exam. Patient does have specific tend erness over the left paracervical and trapezius muscles and extending to the left shoulder. This appears to be musculoskeletal. I did reviewed venous Doppler from triage and this was negative for acute findings. I discussed the patient, he was very happy with these results. He will be treated with muscle relaxers, anti-inflammatories, discussed follow-up and return precautions. Patient states understanding and agreement. - Vital Signs Vital signs: Temp Pulse Resp BP Pulse Ox 98.4 F 63 20 154/84 H 100 05/02/19 21:15 05/02/19 21:15 05/02/19 21:15 05/02/19 21:15 05/02/19 21:15 Discharge - Discharge Clinical Impression: Upper back pain on left side, Left arm pain Condition: Stable Disposition: HOME, SELF-CARE Additional Instructions: The venous Doppler is negative for blood clot. This appears to be muscular strain in your neck, upper back, shoulder. This should eventually resolve. I recommend the anti-inflammatory as prescribed, the cyclobenzaprine muscle x-ray especially at night to help you sleep. I recommend heat, gentle massage, gentle stretches. Follow-up with primary care for additional management. Return for any concerning symptoms including severe swelling, developing redness, fever, severe worsening pain, or any other concerning symptoms. Prescriptions: Cyclobenzaprine HCl 1 - 2 tab PO Q8H PRN #20 tablet PRN Reason: Naproxen 500 mg PO BID PRN #20 tablet PRN Reason: Forms: Elevated Blood Pressure [facility]errals: [facility] [Primary Care Provider] - Follow up in 1 week
[2019-05-02 21:15] VITALS: BP 154/84
== END 2019-05-02 21:14 | disposition home or self-care (01) ==
LOC: ER 17:32
DX: M54.6 Pain in thoracic spine (principal); M79.602 Pain in left arm
CPT/HCPCS: 93971; 99283

== ENCOUNTER 2019-09-17 21:22 | Emergency (ER) | payer OTHER ==
[2019-09-17 21:39] VITALS: BP 128/79
[2019-09-17] MEDS ORDERED: ENOXAPARIN SODIUM INJ 80 MG/0.8 ML DISP.SYRIN SUBCUT ONE (23:00)
--- NOTE | 2019-09-17 23:04 | ER Document Report ---
HPI - HPI Patient complains to provider of: Right Calf Pain Time Seen by Provider: 09/17/19 22:57 Pain Level: 4 Context: 34-year-old male past medical history significant for multiple DVTs presents to the emergency room complaining of right calf pain that started yesterday. He denies any recent travel or injury. Not currently on blood thinners. States his last DVT was approximately 3 years ago has been on Lovenox, Coumadin, and Xarelto in the past. Unknown cause of his recurrent DVTs. Associated Symptoms: None Exacerbated by: Movement, Walking Relieved by: Denies Similar symptoms previously: Yes - History of previous DVTs Recently seen / treated by doctor: No - ROS Systems Reviewed and Negative: Yes All other systems reviewed and negative - CONSTITUTIONAL Constitutional: DENIES: Fever - NEURO Neurology: DENIES: Weakness - CARDIOVASCULAR Cardiovascular: DENIES: Chest pain - RESPIRATORY Respiratory: DENIES: Trouble Breathing - REPRODUCTIVE Reproductive: DENIES: : - MUSCULOSKELETAL Musculoskeletal: REPORTS: Extremity pain - DERM Skin Color: Normal Skin Problems: None Past Medical History - General Information source: Patient - Social History Smoking Status: Former Smoker Frequency of alcohol use: None Drug Abuse: Marijuana Family History: Reviewed & Not Pertinent Patient has homicidal ideation: No - Past Medical History Cardiac Medical History: Reports: 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 IN LAST 30 DAYS: No - HEENT HEENT: Atraumatic, Normocephalic - NECK Neck: Normal Inspection, Supple, Thyroid Normal - RESPIRATORY Respiratory: Breath Sounds Normal, No Respiratory Distress, Chest Non-Tender - CARDIOVASCULAR Cardiovascular: Regular Rate, Regular Rhythm, No Murmur - MUSCULOSKELETAL/EXTREMETIES Musculoskeletal/Extremeties: FROM, Tender - Calf is tender to palpation. No obvious deformity noted. Mild swelling noted. - NEURO Level of Consciousness: Awake, Alert, Appropriate Motor/Sensory: No Motor Deficit, No Sensory Deficit Notes: Positive Homans on the right, positive right pedal pulse. Capillary refill less than 3 seconds. - DERM Integumentary: Warm, Dry, No Rash Course - Re-evaluation Re-evalutation: 09/17/19 23:07 Patient with a history of recurrent DVTs. Unable to get Doppler ultrasound at this time. Secondary to patient's risk factors will give subcu Lovenox tonight. Patient was counseled on the importance of returning in the morning as early as possible to get a Doppler ultrasound. He is aware that he needs to try to be here before 11 AM as that is when he would be due for his next Lovenox injection . Patient was given strict return to the emergency room guidelines. Return for any new or worsening symptoms. All questions were answered. Patient verbalized understanding and agrees with plan of care. - Vital Signs Vital signs: Temp Pulse Resp BP Pulse Ox 98.9 F 89 20 128/79 H 99 09/17/19 21:38 09/17/19 21:38 09/17/19 21:38 09/17/19 21:38 09/17/19 21:38 Discharge - Discharge Clinical Impression: Right calf pain Condition: Stable Disposition: HOME, SELF-CARE Instructions: Possible Evolving Leg DVT ([facility]) Additional Instructions: You have been given a dose of Lovenox in the emergency room. It is imperative that you return as soon as possible in the morning after 7 AM so that you can get your ultrasound to rule out a DVT. Return to the emergency room sooner for any new or worsening symptoms. Referrals: [facility] [Primary Care Provider] - Follow up as needed
== END 2019-09-17 23:10 | disposition home or self-care (01) ==
LOC: ER 21:22
DX: M79.661 Pain in right lower leg (principal); F12.10 Cannabis abuse, uncomplicated; Z86.718 Personal history of other venous thrombosis and embolism; Z87.891 Personal history of nicotine dependence
CPT/HCPCS: 99283; 96372; J1650

== ENCOUNTER 2019-09-18 08:21 | Emergency (ER) | payer OTHER ==
--- NOTE | 2019-09-18 08:48 | ER Document Report ---
HPI - HPI Time Seen by Provider: 09/18/19 08:42 Pain Level: 3 Notes: Patient is a 34-year-old male with history of DVTs presenting to the emergency department chief complaint of pain to his right calf. Patient reports he has had 3 DVTs in the past, they have been in both legs previously. He has not on any blood thinners. He states when he has a DVT they usually give him Lovenox for 1 week and then transition him to Coumadin. He denies any chest pain, shortness of breath, recent travel, smoking. - REPRODUCTIVE Reproductive: DENIES: : - MUSCULOSKELETAL Musculoskeletal: REPORTS: Extremity pain Past Medical History - General Information source: Patient - Social History Smoking Status: Never Smoker Frequency of alcohol use: None Drug Abuse: Marijuana Family History: Reviewed & Not Pertinent - Past Medical History Cardiac Medical History: Reports: 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 Renal/ Medical History: Denies: Hx Peritoneal Dialysis - Immunizations Immunizations up to date: Yes Hx Diphtheria, Pertussis, Tetanus Vaccination: Yes Vertical Provider Document - CONSTITUTIONAL Notes: PHYSICAL EXAMINATION: GENERAL: Well-appearing, well-nourished and in no acute distress. HEAD: Atraumatic, normocephalic. EYES: Pupils equal round and reactive to light, extraocular movements intact, sclera anicteric, conjunctiva are normal. ENT: Nares patent, oropharynx clear without exudates. Moist mucous membranes. NECK: Normal range of motion, supple without lymphadenopathy LUNGS: Breath sounds clear to auscultation bilaterally and equal. No wheezes rales or rhonchi. HEART: Regular rate and rhythm without murmurs ABDOMEN: Soft, nontender, nondistended abdomen. No guarding, no rebound. No masses appreciated. Musculoskeletal: Swelling noted to right lower extremity with slight erythema. NEUROLOGICAL: Cranial nerves grossly intact. Normal speech, normal gait. Normal sensory, motor exams PSYCH: Normal mood, normal affect. SKIN: Warm, Dry, normal turgor, no rashes or lesions noted. - INFECTION CONTROL TRAVEL OUTSIDE OF THE [place] IN LAST 30 DAYS: No Course - Re-evaluation Re-evalutation: 09/18/19 08:48 Patient was evaluated in the triage area, venous Doppler ultrasound is pending. Patient was given a dose of Lovenox here in the emergency department last night on a previous visit. He was discharged home and told to return today to have the venous Doppler ultrasound done as ultrasound was not in-house overnight. Patient has positive DVT on ultrasound. The full report is not available. Patient does not have insurance. He will be started on Lovenox 1 mg/kg every 12 hours for the next 7 days. He will follow-up with his primary care team who will start him on another anticoagulant at that time. - Vital Signs Vital signs: Temp Pulse Resp BP Pulse Ox 97.6 F 99 16 155/95 H 96 09/18/19 08:25 09/18/19 08:25 09/18/19 08:25 09/18/19 08:25 09/18/19 08:25 Discharge - Discharge Clinical Impression: DVT (deep venous thrombosis) Qualifiers: DVT location: lower extremity Affected thrombotic vein of extremity: unspecified vein of extremity Chronicity: acute Laterality: right Qualified Code(s): I82.401 - Acute embolism and thrombosis of unspecified deep veins of right lower extremity Condition: Stable Disposition: HOME, SELF-CARE Additional Instructions: We will be starting you on Lovenox today. I have written you a prescription for 7 days worth of Lovenox. It is important that you call the [place] clinic today to schedule an appointment, they will need to see you to start you on Coumadin and also to monitor your blood levels. In the alternative you may follow-up with the [facility] here in [place], this is a clinic who takes patients without insurance and has a low flat rate office visit fee. Please re turn to the emergency department for any new or worsening symptoms. Prescriptions: Enoxaparin Sodium [Lovenox Inj 80 mg/0.8 ml Disp.syrin] 70 mg SUBCUT BID #14 disp.syrin [facility]errals[facility] [[facility]] - Follow up as needed [facility] [Provider Group] - Follow up as needed
[2019-09-18] MEDS ORDERED: OXYCODONE-ACETAMINOPHEN 5-325 MG TABLET PO ONE (11:59)
--- NOTE | 2019-09-18 12:02 | RADIOLOGY REPORT (SQ) ---
EXAM DESCRIPTION: VENOUS UNILATERAL LOWER IMAGES COMPLETED DATE/TIME: 09/18/2019 10:41 am REASON FOR STUDY: R calf reed and swelling h/o DVT COMPARISON: 06/11/2014 TECHNIQUE: Dynamic and static otero scale and color images acquired of the right leg venous system. S elected spectral images acquired with additional compression and augmentation maneuvers. The contrala teral common femoral vein and saphenofemoral junction were also imaged. Images stored on PACS. LIMITATIONS: None. FINDINGS: COMMON FEMORAL: Normal phasicity, compression and augmentation. No visualized echogenic ma terial on otero scale. No defects on color images. FEMORAL: Normal compression and augmentation. No visualized echogenic material on otero scale. No defe cts on color images. POPLITEAL: Normal compression, augmentation. No visualized echogenic material on otero scale. No defec ts on color images. CALF VESSELS: Decreased compressibility and echogenic material visualize within the peroneal veins co mpatible with DVT. Posterior tibial vein demonstrates normal compressibility. GSV and SSV: Normal compression, augmentation. No visualized echogenic material on otero scale. No def ects on color images. ANY DEEP VENOUS INSUFFICIENCY: Not evaluated. ANY EVIDENCE OF POPLITEAL CYST: No. OTHER: No other significant finding. CONTRALATERAL COMMON FEMORAL VEIN AND SAPHENOFEMORAL JUNCTION: Normal phasicity, compression and augmentation. No visualized echogenic material on otero scale. No de fects on color images. IMPRESSION: Decreased compressibility and echogenic material within the peroneal vein at the level o f the upper and mid calf compatible with thrombus. Findings conveyed to Dr. Ridley by the manager activities at the time of the exam. TECHNICAL DOCUMENTATION: JOB ID: [id number] 2010 [employer]- All Rights Reserved Reading location - IP/workstation name: [email or web address]
[2019-09-18 12:32] LABS: PROTHROMBIN TIME 13.4 SEC (11.4-15.4)
[2019-09-18 12:33] LABS: PARTIAL THROMBOPLASTIN TIME 28.6 SEC (23.5-35.8)
[2019-09-18] MEDS ORDERED: ENOXAPARIN SODIUM INJ 80 MG/0.8 ML DISP.SYRIN SUBCUT ONE (13:25)
[2019-09-18 13:39] VITALS: BP 134/86
== END 2019-09-18 13:39 | disposition home or self-care (01) ==
LOC: ER 08:21
DX: I82.401 Acute embolism and thrombosis of unspecified deep veins of right lower extremity (principal); M79.604 Pain in right leg; Z79.01 Long term (current) use of anticoagulants
CPT/HCPCS: 99285; 96372; 36415; 85610; 85730; 93971; J1650

== ENCOUNTER 2019-09-21 19:02 | Emergency (ER) | payer OTHER ==
[2019-09-21] MEDS ORDERED: ONDANSETRON HCL INJ/PF 4 MG/2 ML SDV IV ONE (22:57)
[2019-09-21 23:18] LABS: ABSOLUTE LYMPHOCYTES (AUTO) 0.9 10^3/uL (0.5-4.7); ABSOLUTE MONOCYTES (AUTO) 0.3 10^3/uL (0.1-1.4); ABSOLUTE NEUT (AUTO) 10.8 10^3/uL (1.7-8.2); BASOPHILS % (AUTO) 0.3 % (0-2); HEMATOCRIT 50.4 % (37.9-51.0); HEMOGLOBIN 17.5 g/dL (13.5-17.0); LYMPHOCYTES % (AUTO) 7.3 % (13-45); MEAN CORPUSCULAR HEMOGLOBIN 31.7 pg (27.0-33.4); MEAN CORPUSCULAR HGB CONC 34.6 g/dL (32.0-36.0); MEAN CORPUSCULAR VOLUME 92 fl (80-97); MONOCYTES % (AUTO) 2.6 % (3-13); PLATELET COUNT 222 10^3/uL (150-450); RED BLOOD COUNT 5.51 10^6/uL (4.35-5.55); SEGMENTED NEUTROPHILS % (AUTO) 89.8 % (42-78); TOTAL CELLS COUNTED % (AUTO) 100 %
[2019-09-21 23:19] LABS: ALBUMIN 5.5 g/dL (3.5-5.0); ALKALINE PHOSPHATASE 76 U/L (38-126); ANION GAP 12 (5-19); ASPARTATE AMINO TRANSFERASE 39 U/L (17-59); BILIRUBIN,DIRECT 0.1 mg/dL (0.0-0.4); BILIRUBIN,TOTAL 0.8 mg/dL (0.2-1.3); BLOOD UREA NITROGEN 19 mg/dL (7-20); CALCIUM 10.7 mg/dL (8.4-10.2); CARBON DIOXIDE 29 mmol/L (22-30); CHLORIDE 96 mmol/L (98-107); GLUCOSE 164 mg/dL (75-110); POTASSIUM 4.4 mmol/L (3.6-5.0); TOTAL PROTEIN 9.4 g/dL (6.3-8.2)
--- NOTE | 2019-09-21 23:22 | ER Document Report ---
ED General - General Chief Complaint: Nausea/Vomiting Stated Complaint: NAUSEA, VOMITING, FEELING FEVERISH, CHILLS Time Seen by Provider: 09/21/19 23:20 Primary Care Provider: CHRIS,AUGIE [Primary Care Provider] - Follow up as needed TRAVEL OUTSIDE OF THE [place] IN LAST 30 DAYS: No - HPI Notes: 34-year-old male presents with nausea, vomiting and epigastric abdominal pain. Patient states his onset of his symptoms occurred this morning after he ate biscuits and gravy from a gas station. He states that it did not taste good and feels that the food did not agree with him. Shortly after eating he developed his symptoms. He has vomited about 10 times today, described as a clear/yellow fluid. He denies any blood in his emesis. He is also had a few episodes of diarrhea. He also experienced some abdominal cramping with vomiting. No fever or chills. No cough or shortness of breath. Of note he currently is on Lovenox, he is recently diagnosed with a DVT, he has a history of multiple DVTs, states that he has never been worked up for why he has had multiple clots. - Related Data Allergies/Adverse Reactions: No Known Allergies Allergy (Verified 01/08/19 08:23) Home Medications: Lovenox Past Medical History - General Information source: Patient - Social History Smoking Status: Never Smoker Chew tobacco use (# tins/day): No Frequency of alcohol use: None Drug Abuse: Marijuana Family History: Reviewed & Not Pertinent - Past Medical History Cardiac Medical History: Reports: 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 Renal/ Medical History: Denies: Hx Peritoneal Dialysis - Immunizations Immunizations up to date: Yes Hx Diphtheria, Pertussis, Tetanus Vaccination: Yes Review of Systems - Review of Systems Constitutional: denies: Chills, Fever EENT: No symptoms reported Cardiovascular: denies: Chest pain Respiratory: denies: Cough, Short of breath Gastrointestinal: Diarrhea, Nausea, Vomiting Genitourinary: No symptoms reported Male Genitourinary: No symptoms reported Musculoskeletal: No symptoms reported Skin: No symptoms reported Hematologic/Lymphatic: No symptoms reported Neurological/Psychological: No symptoms reported Physical Exam - Vital signs Vitals: Temp Pulse Resp BP Pulse Ox 98.7 F 102 H 18 163/108 H 100 09/21/19 20:47 09/21/19 20:47 09/21/19 20:47 09/21/19 20:47 09/21/19 20:47 Interpretation: Normal - General General appearance: Appears well In distress: None - HEENT Head: Normocephalic, Atraumatic Eyes: No: Scleral icterus Pupils: PERRL - Respiratory Breath sounds: Normal - Cardiovascular Rhythm: Regular Heart sounds: Normal auscultation Normal capillary refill: Yes - Abdominal Inspection: Normal, Striae Bowel sounds: Normal Tenderness: Nontender - Extremities General upper extremity: Normal inspection General lower extremity: Normal inspection - Neurological Neuro grossly intact: Yes Cognition: Normal Orientation: AAOx4 - Psychological Associated symptoms: Normal affect - Skin Skin Temperature: Warm Course - Re-evaluation Re-evalutation: 34-year-old male with N/V/D after consuming biscuits and gravy this morning. He is nontoxic-appearing, VSS. His abdomen is soft and does not exhibit any tenderness. Suspect that his symptoms are from food poisoning versus food intolerance. Do not suspect acute intra-abdominal pathology at this time. Labs have been ordered, have added on lipase though low suspicion for pancreatitis. He reports he is already feeling better following Zofran administration. Will give Pepcid and Bentyl for further symptomatic control along with some fluids. 09/22/19 01:05 Minimal leukocytosis, likely reactionary. No acute anemia. Electrolytes ok. No elevations of LFTs or lipase. 09/22/19 01:07 Patient was reevaluated. He reports he is feeling better. No further vomiting while in the emergency department. We discussed the use of Zofran and Bentyl for symptoms. Return precautions were given, discharged in stable condition. - Vital Signs Vital signs: Temp Pulse Resp BP Pulse Ox 98.0 F 82 18 130/65 H 98 09/22/19 01:45 09/22/19 01:45 09/21/19 20:47 09/22/19 01:45 09/22/19 01:45 - Laboratory Result Diagrams: 09/21/19 22:15 09/21/19 22:15 Laboratory results interpreted by me: 09/21/19 09/21/19 22:15 22:15 WBC 12.0 H Hgb 17.5 H Lymph % (Auto) 7.3 L Linn % (Auto) 2.6 L Absolute Neuts (auto) 10.8 H Seg Neutrophils % 89.8 H Sodium 136.5 L Chloride 96 L Glucose 164 H Calcium 10.7 H Total Protein 9.4 H Albumin 5.5 H Discharge - Discharge Clinical Impression: Nausea and vomiting in adult patient Condition: Stable Disposition: HOME, SELF-CARE Instructions: Vomiting ([facility]) Additional Instructions: Use Zofran as needed for nausea and vomiting, use Bentyl as needed for stomach cramps. Drink plenty of fluids. Try a bland diet for the next few days. Return to the ED for any worsening or concerning symptoms. Prescriptions: Dicyclomine HCl [Bentyl 10 mg Capsule] 10 mg PO QIDP PRN 7 Days #30 capsule PRN Reason: Abdominal Cramping Ondansetron [Zofran Odt 4 mg Tablet] 1 tab PO Q4H PRN #15 tab.rapdis PRN Reason: For Nausea/Vomiting [facility]errals: [facility] [[facility]] - Follow up as needed
[2019-09-21] MEDS ORDERED: DICYCLOMINE HCL 10 MG CAPSULE PO ONE (23:37)
[2019-09-21] MEDS ORDERED: FAMOTIDINE INJ/PF 20 MG/2 ML SDV IV ONE (23:37)
[2019-09-21] MEDS ORDERED: KETOROLAC TROMETHAMINE INJ/PF 30 MG/1 ML SDV IV ONE (23:37)
[2019-09-21] MEDS ORDERED: NORMAL SALINE 1000 ML 1,000 ML IV ONE (23:38)
[2019-09-22 01:46] VITALS: BP 130/65
== END 2019-09-22 01:46 | disposition home or self-care (01) ==
LOC: ER 19:02
DX: R11.2 Nausea with vomiting, unspecified (principal); R50.9 Fever, unspecified; R10.13 Epigastric pain; R19.7 Diarrhea, unspecified; Z79.899 Other long term (current) drug therapy
CPT/HCPCS: 99284; 96361; 96374; 96375; 36415; 83690; 85025; 80053; J3490; J1885; J2405; J7030; S0028

== ENCOUNTER 2019-09-23 14:09 | Emergency (ER) | payer OTHER ==
--- NOTE | 2019-09-23 14:44 | ER Document Report ---
ED Medical Screen (RME) - General Chief Complaint: Abdominal Pain Stated Complaint: ABDOMINAL PAIN Time Seen by Provider: 09/23/19 14:38 Primary Care Provider: CHRIS,AUGIE [Primary Care Provider] - Follow up as needed Mode of Arrival: Ambulatory Information source: Patient Notes: 34-year-old male presented to ED for complaint of upper and left abdominal pain. He states he had the pain yesterday they gave him some medicines and he went home and the pain did not get any better. 34-year-old male presented to ED for left to mid upper abdominal pain for the last 4 days. He states he was seen here yesterday given some medicine and sent home but he has not had any relief from the pain. He states is the same as it was yesterday. He is alert oriented respirations regular nonlabored speaking in full sentences. When checking his labs from yesterday he did have a blood sugar of 164 and he states he was not eating anything before having his blood drawn yesterday he did have elevated blood pressure yesterday and today. Will recheck his labs. We will recheck his labs and urine and get a CT abdomen pelvis oral and IV contrast. Patient is alert oriented respirations regular nonlabored speaking in full sentences. I have greeted and performed a rapid initial assessment of this patient. A comprehensive ED assessment and evaluation of the patient, analysis of test results and completion of medical decision making process will be conducted by an additional ED providers. TRAVEL OUTSIDE OF THE [place] IN LAST 30 DAYS: No - Related Data Allergies/Adverse Reactions: No Known Allergies Allergy (Verified 01/08/19 08:23) Home Medications: lovenox Past Medical History - Social History Frequency of alcohol use: None Drug Abuse: Marijuana, Other - Past Medical History Cardiac Medical History: Reports: 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 Renal/ Medical History: Denies: Hx Peritoneal Dialysis - Immunizations Immunizations up to date: Yes Hx Diphtheria, Pertussis, Tetanus Vaccination: Yes Physical Exam - Vital signs Vitals: Temp Pulse Resp BP Pulse Ox 98.6 F 97 16 154/98 H 100 09/23/19 14:14 09/23/19 14:14 09/23/19 14:14 09/23/19 14:14 09/23/19 14:14 Course - Vital Signs Vital signs: Temp Pulse Resp BP Pulse Ox 98.6 F 97 16 154/98 H 100 09/23/19 14:14 09/23/19 14:14 09/23/19 14:14 09/23/19 14:14 09/23/19 14:14 Doctor's Discharge - Discharge Referrals: [facility] [[facility] - Follow up as needed
[2019-09-23] MEDS ORDERED: ONDANSETRON HCL INJ/PF 4 MG/2 ML SDV IV ONE (14:45)
[2019-09-23] MEDS ORDERED: NORMAL SALINE 1000 ML 1,000 ML IV ONE ×2 (14:45)
[2019-09-23 15:50] LABS: ALBUMIN 4.8 g/dL (3.5-5.0); ALKALINE PHOSPHATASE 65 U/L (38-126); ANION GAP 10 (5-19); ASPARTATE AMINO TRANSFERASE 29 U/L (17-59); BILIRUBIN,TOTAL 1.2 mg/dL (0.2-1.3); BLOOD UREA NITROGEN 15 mg/dL (7-20); CALCIUM 10.3 mg/dL (8.4-10.2); CARBON DIOXIDE 31 mmol/L (22-30); CHLORIDE 97 mmol/L (98-107); GLUCOSE 125 mg/dL (75-110); POTASSIUM 4.1 mmol/L (3.6-5.0); TOTAL PROTEIN 8.5 g/dL (6.3-8.2)
[2019-09-23 15:56] LABS: ABSOLUTE BASOPHILS # (AUTO) 0.1 10^3/uL (0.0-0.2); ABSOLUTE LYMPHOCYTES (AUTO) 2.1 10^3/uL (0.5-4.7); ABSOLUTE NEUT (AUTO) 11.7 10^3/uL (1.7-8.2); BASOPHILS % (AUTO) 0.4 % (0-2); EOSINOPHILS % (AUTO) 0.2 % (0-6); HEMATOCRIT 49.7 % (37.9-51.0); HEMOGLOBIN 16.7 g/dL (13.5-17.0); LYMPHOCYTES % (AUTO) 13.9 % (13-45); MEAN CORPUSCULAR HEMOGLOBIN 31.1 pg (27.0-33.4); MEAN CORPUSCULAR HGB CONC 33.7 g/dL (32.0-36.0); MEAN CORPUSCULAR VOLUME 92 fl (80-97); MONOCYTES % (AUTO) 6.4 % (3-13); PLATELET COUNT 246 10^3/uL (150-450); RED BLOOD COUNT 5.39 10^6/uL (4.35-5.55); RED CELL DISTRIBUTION WIDTH 12.8 % (11.5-14.0); SEGMENTED NEUTROPHILS % (AUTO) 79.1 % (42-78); TOTAL CELLS COUNTED % (AUTO) 100 %; WHITE BLOOD COUNT 14.9 10^3/uL (4.0-10.5)
[2019-09-23 16:00] LABS: APPEARANCE,URINE CLEAR; BILIRUBIN,URINE NEGATIVE (NEGATIVE); COLOR,URINE YELLOW; GLUCOSE, URINE NEGATIVE (NEGATIVE); KETONES,URINE NEGATIVE (NEGATIVE); LEUKOCYTE ESTERASE,URINE NEGATIVE (NEGATIVE); NITRITE,URINE NEGATIVE (NEGATIVE); PROTEIN,URINE 30 mg/dL (NEGATIVE); URINE SPECIFIC GRAVITY 1.026
[2019-09-23] MEDS ORDERED: FENTANYL CITRATE INJ/PF 100 MCG/2 ML AMPUL IV ONE (16:01)
--- NOTE | 2019-09-23 16:02 | ER Document Report ---
ED GI/ - General Chief Complaint: Abdominal Pain Stated Complaint: ABDOMINAL PAIN Time Seen by Provider: 09/23/19 14:38 Primary Care Provider: PRIYA VILLARREAL MD [ACTIVE STAFF] - Follow up as needed ARDEN FARIA MD [ACTIVE STAFF] - Follow up as needed EVERETT BISWAS MD [ACTIVE STAFF] - Follow up as needed [facility] [Primary Care Provider] - 09/25/19 Mode of Arrival: Ambulatory Information source: Patient Notes: Patient presents complaint of left upper quadrant abdominal pain for the past 4 days. Patient reports nausea vomiting x2 episodes today. Patient denies any fever or diarrhea. Patient denies any cough or cold symptoms. Patient states he was seen here recently for this complaint and given a prescription for Zofran. Patient denies any improvement of the symptoms. TRAVEL OUTSIDE OF THE [place] IN LAST 30 DAYS: No - HPI Patient complains to provider of: Abdominal pain, Vomiting Onset: Other - 4 days Timing/Duration: Persistent Quality of pain: Achy Pain Level: 4 Location: [facility] Associated symptoms: Nausea, Vomiting. denies: Chest pain, Constipation, Diarrhea, Urinary hesitancy, Urinary frequency, Urinary retention, Urinary urgen cy Exacerbated by: Denies Relieved by: Denies Similar symptoms previously: Yes Recently seen / treated by doctor: Yes - Related Data Allergies/Adverse Reactions: No Known Allergies Allergy (Verified 01/08/19 08:23) Home Medications: lovenox Past Medical History - General Information source: Patient - Social History Smoking Status: Former Smoker Frequency of alcohol use: None Drug Abuse: Marijuana, Other Occupation: chef manager for [employer] Family History: Reviewed & Not Pertinent - Past Medical History Cardiac Medical History: Reports: 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 Renal/ Medical History: Denies: Hx Peritoneal Dialysis Surgical Hx: Negative - Immunizations Immunizations up to date: Yes Hx Diphtheria, Pertussis, Tetanus Vaccination: Yes Review of Systems - Review of Systems Constitutional: No symptoms reported. denies: Fever EENT: No symptoms reported Cardiovascular: No symptoms reported. denies: Chest pain Respiratory: No symptoms reported. denies: Cough, Short of breath Gastrointestinal: Abdominal pain, Nausea, Vomiting. denies: Diarrhea Genitourinary: No symptoms reported. denies: Dysuria, Flank pain Male Genitourinary: No symptoms reported Musculoskeletal: No symptoms reported. denies: Back pain Skin: No symptoms reported Hematologic/Lymphatic: No symptoms reported Neurological/Psychological: No symptoms reported Physical Exam - Vital signs Vitals: Temp Pulse Resp BP Pulse Ox 98.6 F 97 16 154/98 H 100 09/23/19 14:14 09/23/19 14:14 09/23/19 14:14 09/23/19 14:14 09/23/19 14:14 - General General appearance: Appears well, Alert In distress: None - HEENT Head: Normocephalic, Atraumatic Eyes: Normal Conjunctiva: Normal Nasal: Normal Mouth/Lips: Normal Mucous membranes: Normal Neck: Normal, Supple. No: Lymphadenopathy - Respiratory Respiratory status: No respiratory distress Chest status: Nontender Breath sounds: Normal. No: Rales, Rhonchi, Stridor, Wheezing Chest palpation: Normal - Cardiovascular Rhythm: Regular Heart sounds: S1 appreciated, S2 appreciated Murmur: No - Abdominal Inspection: Normal Distension: No distension Bowel sounds: Normal Tenderness: Tender - Epigastric, left upper quadrant Organomegaly: No organomegaly - Back Back: Normal, Nontender. No: CVA tenderness - Extremities General upper extremity: Normal inspection, Nontender, Normal ROM General lower extremity: Normal inspection, Nontender, Normal ROM - Neurological Neuro grossly intact: Yes Cognition: Normal [place] Coma Scale Eye Opening: Spontaneous [place] Coma Scale Verbal: Oriented Jammie Coma Scale Motor: Obeys Commands Jammie Coma Scale Total: 15 - Psychological Associated symptoms: Normal affect, Normal mood - Skin Skin Temperature: Warm Skin Moisture: Dry Skin Color: Normal Course - Re-evaluation Re-evalutation: 09/23/19 19:07 Continues with left upper quadrant tenderness, no acute findings on CT scan. No additional vomiting during visit here. Patient has been able to tolerate oral fluid including his oral contrast. Discussed with patient concern about possible viral illness, gastritis, possible COVID as well as considering cyclical vomiting associated with marijuana use. Patient would like COVID testing at this time prior to discharge. Patient presents with abdominal pain without signs of peritonitis or other life-threatening or serious etiology. Patient appears stable for discharge and has been instructed to return immediately if the symptoms worsen in any way. - Vital Signs Vital signs: Temp Pulse Resp BP Pulse Ox 98.6 F 97 16 164/92 H 100 09/23/19 14:14 09/23/19 14:14 09/23/19 14:14 09/23/19 14:41 09/23/19 14:14 - Laboratory Result Diagrams: 09/23/19 15:04 09/23/19 15:04 Laboratory results interpreted by me: 09/23/19 09/23/19 09/23/19 15:04 15:04 15:04 WBC 14.9 H Absolute Neuts (auto) 11.7 H Seg Neutrophils % 79.1 H Chloride 97 L Carbon Dioxide 31 H Glucose 125 H Calcium 10.3 H Total Protein 8.5 H Urine Protein 30 H Urine Urobilinogen 4.0 H 09/23/19 19:08 Labs- All tests 24 hr 09/23/19 09/23/19 09/23/19 15:04 15:04 15:04 WBC 14.9 H RBC 5.39 Hgb 16.7 Hct 49.7 MCV 92 MCH 31.1 MCHC 33.7 RDW 12.8 Plt Count 246 Lymph % (Auto) 13.9 Hale % (Auto) 6.4 Eos % (Auto) 0.2 Baso % (Auto) 0.4 Absolute Neuts (auto) 11.7 H Absolute Lymphs (auto) 2.1 Absolute Monos (auto) 1.0 Absolute Eos (auto) 0.0 Absolute Basos (auto) 0.1 Seg Neutrophils % 79.1 H Sodium 137.8 Potassium 4.1 Chloride 97 L Carbon Dioxide 31 H Anion Gap 10 BUN 15 Creatinine 0.96 Est GFR ( Amer) > 60 Est GFR (MDRD) Non-Af > 60 Glucose 125 H Calcium 10.3 H Total Bilirubin 1.2 Direct Bilirubin 0.0 Neonat Total Bilirubin Not Reportable Neonat Direct Bilirubin Not Reportable Neonat Indirect Bili Not Reportable AST 29 ALT 23 Alkaline Phosphatase 65 Total Protein 8.5 H Albumin 4.8 Lipase 29.1 Urine Color YELLOW Urine Appearance CLEAR Urine pH 6.0 Ur Specific Semora 1.026 Urine Protein 30 H Urine Glucose (UA) NEGATIVE Urine Ketones NEGATIVE Urine Blood NEGATIVE Urine Nitrite NEGATIVE Urine Bilirubin NEGATIVE Urine Urobilinogen 4.0 H Ur Leukocyte Esterase NEGATIVE Urine WBC (Auto) 2 Urine RBC (Auto) 1 Urine Mucus (Auto) OCC Urine Ascorbic Acid NEGATIVE Urine Opiates Screen Urine Methadone Screen Ur Barbiturates Screen Ur Phencyclidine Scrn Ur Amphetamines Screen U Benzodiazepines Scrn Urine Cocaine Screen U Marijuana (THC) Screen 09/23/19 15:04 WBC RBC Hgb Hct MCV MCH MCHC RDW Plt Count Lymph % (Auto) Hale % (Auto) Eos % (Auto) Baso % (Auto) Absolute Neuts (auto) Absolute Lymphs (auto) Absolute Monos (auto) Absolute Eos (auto) Absolute Basos (auto) Seg Neutrophils % Sodium Potassium Chloride Carbon Dioxide Anion Gap BUN Creatinine Est GFR ( Amer) Est GFR (MDRD) Non-Af Glucose Calcium Total Bilirubin Direct Bilirubin Neonat Total Bilirubin Neonat Direct Bilirubin Neonat Indirect Bili AST ALT Alkaline Phosphatase Total Protein Albumin Lipase Urine Color Urine Appearance Urine pH Ur Specific Semora Urine Protein Urine Glucose (UA) Urine Ketones Urine Blood Urine Nitrite Urine Bilirubin Urine Urobilinogen Ur Leukocyte Esterase Urine WBC (Auto) Urine RBC (Auto) Urine Mucus (Auto) Urine Ascorbic Acid Urine Opiates Screen NEGATIVE Urine Methadone Screen NEGATIVE Ur Barbiturates Screen NEGATIVE Ur Phencyclidine Scrn NEGATIVE Ur Amphetamines Screen NEGATIVE U Benzodiazepines Scrn NEGATIVE Urine Cocaine Screen NEGATIVE U Marijuana (THC) Screen UNCONFIRMED POSITIVE - Diagnostic Test Radiology reviewed: Reports reviewed - EKG Interpretation by [place] EKG shows normal: Sinus rhythm Rate: Normal Additional EKG results interpreted by ne: 09/23/19 16:37 Sinus rhythm rate of 72, QTc 443, no acute ischemic changes, no ST elevation, no T wave inversion Discharge - Discharge Clinical Impression: Encounter for screening laboratory testing for COVID-19 virus Vomiting Qualifiers: Vomiting type: unspecified Vomiting Intractability: non-intractable Nausea presence: with nausea Qualified Code(s): R11.2 - Nausea with vomiting, unspecified Gastritis Qualifiers: Gastritis type: unspecified gastritis Chronicity: acute Gastritis bleeding: without bleeding Qualified Code(s): K29.00 - Acute gastritis without bleeding Condition: Stable Disposition: HOME, SELF-CARE Instructions: COVID-19 Guidance for Persons Under Investigation, Abdominal Pain ([facility]), Antinausea Medication ([facility]), Intravenous (IV) Fluids ([facility]), Vomiting ([facility]) Additional Instructions: Return immediately for any new or worsening symptoms Followup with your primary care provider, call tomorrow to make a followup appointment Avoid use of marijuana as this can contribute to pain and vomiting symptoms Follow-up with a health center associate for further evaluation, call Wednesday for follow-up appointment Prescriptions: Sucralfate [Carafate 1 gm Tablet] 1 gm PO ACHS #40 tablet Promethazine HCl [Phenergan 25 mg Tablet] 25 mg PO Q6H PRN #10 tablet PRN Reason: Forms: Return to Work Referrals: [facility] - 09/25/19 PRIYA VILLARREAL MD [ACTIVE STAFF] - Follow up as needed ARDEN FARIA MD [ACTIVE STAFF] - Follow up as needed EVERETT BISWAS MD [ACTIVE STAFF] - Follow up as needed
[2019-09-23 16:11] LABS: URINE AMPHETAMINES SCREEN NEGATIVE; URINE BARBITURATES SCREEN NEGATIVE; URINE BENZODIAZEPINES SCREEN NEGATIVE; URINE COCAINE SCREEN NEGATIVE; URINE METHADONE SCREEN NEGATIVE; URINE PHENCYCLIDINE SCREEN NEGATIVE
[2019-09-23 16:12] LABS: URINE MARIJUANA (THC) SCREEN UNCONFIRMED POSITIVE
--- NOTE | 2019-09-23 18:56 | RADIOLOGY REPORT (SQ) ---
EXAM DESCRIPTION: CT ABD/PELVIS WITH IV ORAL IMAGES COMPLETED DATE/TIME: 09/23/2019 6:45 pm REASON FOR STUDY: upper left abdominal pian not able to eat COMPARISON: None. TECHNIQUE: CT scan of the abdomen and pelvis performed using helical scanning technique with dynamic intravenous contrast injection and oral contrast. Images reviewed with lung, soft tissue, and bone w indows. Reconstructed coronal and sagittal MPR images reviewed. Delayed images for evaluation of the urinary system also acquired. All images stored on PACS. All CT scanners at this facility use dose modulation, iterative reconstruction, and/or weight based d osing when appropriate to reduce radiation dose to as low as reasonably achievable (ALARA). [facility]: Dose Right [facility]: CareDose [facility]: Dose Right [facility]: Teradose 4D [facility]: Pixelligent CONTRAST TYPE AND DOSE: contrast/concentration: Isovue 350.00 mmol/ml; Total Contrast Delivered: 79. 0 ml; Total Saline Delivered: 66.9 ml RENAL FUNCTION: None required. The patient is less than 50 years old. RADIATION DOSE: CT Rad equipment meets quality standard of care and radiation dose reduction techniq ues were employed. CTDIvol: 4.9 - 5.7 mGy. DLP: 609 mGy-cm.. LIMITATIONS: None. FINDINGS: LOWER CHEST: No significant findings. LIVER: Normal size. No enhancing masses. No dilated ducts. SPLEEN: Normal size. No focal lesions. PANCREAS: No masses identified. No significant calcifications. No adjacent inflammation or peripancre atic fluid collections. Pancreatic duct not dilated. GALLBLADDER: No calcified stones. No inflammatory changes to suggest cholecystitis. ADRENAL GLANDS: No significant masses. RIGHT KIDNEY AND URETER: No cysts identified. No solid masses identified. No calcified stones. No hyd ronephrosis or hydroureter. LEFT KIDNEY AND URETER: No cysts identified. No solid masses identified. No calcified stones. No hydr onephrosis or hydroureter. AORTA AND VESSELS: No aneurysm. No dissection. Renal arteries, SMA, celiac without significant stenos is. RETROPERITONEUM: No bulky retroperitoneal adenopathy. BOWEL AND PERITONEAL CAVITY: No obstruction or inflammatory changes. No free fluid. APPENDIX: Normal. PELVIS: No mass. No free fluid. Unremarkable bladder. ABDOMINAL WALL: No masses. No hernias. BONES: No acute findings. OTHER: No other significant finding. IMPRESSION: NO ACUTE FINDINGS IN THE ABDOMEN OR PELVIS ON CT SCAN WITH IV CONTRAST. TECHNICAL DOCUMENTATION: JOB ID: [id number] [place]-72 Quality ID # [id number]: Final reports with documentation of one or more dose reduction techniques (e.g., Au tomated exposure control, adjustment of the mA and/or kV according to patient size, use of iterative reconstruction technique) 2010 [employer]- All Rights Reserved Reading location - IP/workstation name: [email or web address]
[2019-09-23] MEDS ORDERED: LIDOCAINE 2% VISCOUS SOLN 15 ML UDCUP PO ONE (19:07)
[2019-09-23] MEDS ORDERED: MAG HYDROX/AL HYDROX/SIMETH SUSP 30 ML UDCUP PO ONE (19:07)
[2019-09-23 19:35] VITALS: BP 150/88
--- NOTE | 2019-09-23 23:25 | EKG REPORT ---
SEVERITY:- NORMAL ECG - SINUS RHYTHM : Confirmed by: Devon Jolly MD 23-Sep-2019 23:25:31
== END 2019-09-23 19:35 | disposition home or self-care (01) ==
LOC: ER 14:09
DX: Z20.828 Contact with and (suspected) exposure to other viral communicable diseases (principal); K29.00 Acute gastritis without bleeding; R11.2 Nausea with vomiting, unspecified; R10.9 Unspecified abdominal pain; R10.12 Left upper quadrant pain; Z87.891 Personal history of nicotine dependence; Z79.01 Long term (current) use of anticoagulants
CPT/HCPCS: 93005; 99285; 96374; 96375; 36415; 83690; 85025; 87635; 80053; 81001; 80307; 74177; 93010; J3010; J3490; J2405; J7030; C9803

== ENCOUNTER 2019-09-24 12:06 | Emergency (ER) | payer OTHER ==
[2019-09-24] MEDS ORDERED: NORMAL SALINE 1000 ML 1,000 ML IV ONE (12:33)
[2019-09-24] MEDS ORDERED: ONDANSETRON HCL INJ/PF 4 MG/2 ML SDV IV ONE (12:36)
--- NOTE | 2019-09-24 12:36 | ER Document Report ---
ED Medical Screen (RME) - General Chief Complaint: Abdominal Injury Stated Complaint: ABDOMINAL PAIN Time Seen by Provider: 09/24/19 12:32 Primary Care Provider: AUGIE PEREZ [Primary Care Provider] - Follow up as needed Mode of Arrival: Ambulatory Information source: Patient Notes: 34-year-old male presented to ED for upper abdominal pain radiates to the left. He was seen multiple times in the last 3 days. He did have a CT abdomen pelvis with IV and oral contrast yesterday which did not show any abnormalities. He states that the medicines they gave him yesterday are not helping him he still having abdominal pain. We will repeat the labs and urine as he states he is continuing to have nausea and vomiting. I have ordered some IV fluids and Zofran. He was tested yesterday for [place] and does not have the results. I have greeted and performed a rapid initial assessment of this patient. A comprehensive ED assessment and evaluation of the patient, analysis of test results and completion of medical decision making process will be conducted by an additional ED providers. TRAVEL OUTSIDE OF THE [place] IN LAST 30 DAYS: No - Related Data Allergies/Adverse Reactions: No Known Allergies Allergy (Verified 01/08/19 08:23) Past Medical History - Past Medical History Cardiac Medical History: Reports: 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 Renal/ Medical History: Denies: Hx Peritoneal Dialysis - Immunizations Immunizations up to date: Yes Hx Diphtheria, Pertussis, Tetanus Vaccination: Yes Physical Exam - Vital signs Vitals: BP 154/130 H 09/24/19 12:06 Course - Vital Signs Vital signs: Temp Pulse Resp BP Pulse Ox 98.6 F 91 20 180/116 H 100 09/24/19 12:12 09/24/19 12:12 09/24/19 12:12 09/24/19 12:12 09/24/19 12:12 Doctor's Discharge - Discharge Referrals: [facility] [Primary Care Provider] - Follow up as needed
[2019-09-24 13:20] LABS: ABSOLUTE BASOPHILS # (AUTO) 0.1 10^3/uL (0.0-0.2); ABSOLUTE LYMPHOCYTES (AUTO) 1.7 10^3/uL (0.5-4.7); ABSOLUTE MONOCYTES (AUTO) 0.9 10^3/uL (0.1-1.4); BASOPHILS % (AUTO) 0.4 % (0-2); EOSINOPHILS % (AUTO) 0.3 % (0-6); LYMPHOCYTES % (AUTO) 12.6 % (13-45); MEAN CORPUSCULAR HEMOGLOBIN 31.2 pg (27.0-33.4); MEAN CORPUSCULAR HGB CONC 34.1 g/dL (32.0-36.0); MEAN CORPUSCULAR VOLUME 91 fl (80-97); MONOCYTES % (AUTO) 6.7 % (3-13); PLATELET COUNT 220 10^3/uL (150-450); RED BLOOD COUNT 5.14 10^6/uL (4.35-5.55); RED CELL DISTRIBUTION WIDTH 12.6 % (11.5-14.0); TOTAL CELLS COUNTED % (AUTO) 100 %; WHITE BLOOD COUNT 13.7 10^3/uL (4.0-10.5)
[2019-09-24 13:30] LABS: ALKALINE PHOSPHATASE 65 U/L (38-126); ANION GAP 12 (5-19); ASPARTATE AMINO TRANSFERASE 26 U/L (17-59); BILIRUBIN,TOTAL 1.3 mg/dL (0.2-1.3); BLOOD UREA NITROGEN 13 mg/dL (7-20); CALCIUM 10.3 mg/dL (8.4-10.2); CARBON DIOXIDE 32 mmol/L (22-30); CHLORIDE 97 mmol/L (98-107); GLUCOSE 113 mg/dL (75-110); TOTAL PROTEIN 8.5 g/dL (6.3-8.2)
--- NOTE | 2019-09-24 15:11 | ER Document Report ---
ED GI/ - General Chief Complaint: Abdominal Pain Stated Complaint: ABDOMINAL PAIN Time Seen by Provider: 09/24/19 12:32 Primary Care Provider: CHR[facility],AUGIE [Primary Care Provider] - Follow up as needed Mode of Arrival: Ambulatory TRAVEL OUTSIDE OF THE [place] IN LAST 30 DAYS: No - HPI Notes: 09/24/19 15:27 34yo M presents with nausea, vomiting and epigastric pain. patient has had his symptoms for several days, he has been seen in the ED for the past 3 days. he reports no relief with zofran and bentyl as previously prescribed. he states that he has nausea and vomits anytime he tries to drink something. no blood in emesis. pain is epigastric/RUQ, does not radiate, same pain as previous. admits to smoking marijuana to help increase his appetite. - Related Data Allergies/Adverse Reactions: No Known Allergies Allergy (Verified 01/08/19 08:23) Home Medications: zofran Past Medical History - General Information source: Patient - Social History Smoking Status: Never Smoker Chew tobacco use (# tins/day): No Frequency of alcohol use: None Drug Abuse: Marijuana Family History: Reviewed & Not Pertinent Patient has homicidal ideation: No - Past Medical History Cardiac Medical History: Reports: 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 Renal/ Medical History: Denies: Hx Peritoneal Dialysis - Immunizations Immunizations up to date: Yes Hx Diphtheria, Pertussis, Tetanus Vaccination: Yes Review of Systems - Review of Systems Constitutional: denies: Fever EENT: No symptoms reported Cardiovascular: No symptoms reported Respiratory: No symptoms reported Gastrointestinal: See HPI Genitourinary: No symptoms reported Male Genitourinary: No symptoms reported Musculoskeletal: No symptoms reported Skin: No symptoms reported Hematologic/Lymphatic: No symptoms reported Neurological/Psychological: No symptoms reported Physical Exam - Vital signs Vitals: BP 154/130 H 09/24/19 12:06 Interpretation: No: Febrile - General General appearance: Appears well In distress: None - HEENT Head: Normocephalic, Atraumatic Eyes: No: Scleral icterus - Respiratory Breath sounds: Normal - Cardiovascular Rhythm: Regular Heart sounds: Normal auscultation - Abdominal Inspection: Normal Distension: No distension Bowel sounds: Normal Tenderness: Tender - Epigastric/left upper quadrant - Extremities General upper extremity: Normal ROM General lower extremity: Normal ROM - Neurological Neuro grossly intact: Yes Cognition: Normal Orientation: AAOx4 - Psychological Associated symptoms: Normal affect - Skin Skin Temperature: Warm Course - Re-evaluation Re-evalutation: 09/24/19 15:30 34yo M here with epigastric abdominal pain, N/V, multiple ED visits. had CT abd yesterday which showed no acute abnormality. he is well appearing, afebrile, abd is non peritoneal with mild tenderness LUQ, he has no RUQ or RLQ tenderness. given his marijuana use, suspect element of cyclical vomiting, will trial haldol and capsacian cream for his symptoms. QTc wnl on EKG yesterday. gastritis, p ancreatits, viral illness possible as well. 09/24/19 17:04 reviewed labs, lipase is 272.9, which has now elevated from the past 2 days. although this is within the lab's reference values, i consider this elevated 09/24/19 18:01 pt reports feeling better and is ready to go home. given concern for mild pancreatitis, i have rx'd norco. return precautions given, stable at time of discharge. - Vital Signs Vital signs: Temp Pulse Resp BP Pulse Ox 98.6 F 78 20 151/109 H 100 09/24/19 18:25 09/24/19 18:25 09/24/19 18:25 09/24/19 18:25 09/24/19 18:25 - Laboratory Result Diagrams: 09/24/19 13:00 09/24/19 13:00 Laboratory results interpreted by me: 09/24/19 09/24/19 13:00 13:00 WBC 13.7 H Lymph % (Auto) 12.6 L Absolute Neuts (auto) 11.0 H Seg Neutrophils % 80.0 H Chloride 97 L Carbon Dioxide 32 H Glucose 113 H Calcium 10.3 H Total Protein 8.5 H Discharge - Discharge Clinical Impression: Nausea and vomiting in adult patient, Marijuana use Disposition: HOME, SELF-CARE Additional Instructions: drink plenty of fluids. use pain meds as needed. return to ED for any concerning symptoms Prescriptions: Hydrocodone/Acetaminophen [[place] 5-325 mg Tablet] 1 tab PO Q4HP PRN #20 tablet PRN Reason: For Pain Referrals: [facility] [Primary Care Provider] - Follow up as needed
[2019-09-24] MEDS ORDERED: FAMOTIDINE INJ/PF 20 MG/2 ML SDV IV ONE (15:21)
[2019-09-24] MEDS ORDERED: DIPHENHYDRAMINE HCL 50 MG/ML VIAL IV ONE (15:21)
[2019-09-24] MEDS ORDERED: HALOPERIDOL LACTATE INJ 5 MG/1 ML VIAL IV ONE (15:21)
[2019-09-24] MEDS ORDERED: CAPSAICIN 0.025% CREAM 60 GM TP ONE (15:21)
[2019-09-24 16:05] LABS: APPEARANCE,URINE CLEAR; BILIRUBIN,URINE NEGATIVE (NEGATIVE); COLOR,URINE YELLOW; GLUCOSE, URINE NEGATIVE (NEGATIVE); KETONES,URINE NEGATIVE (NEGATIVE); LEUKOCYTE ESTERASE,URINE NEGATIVE (NEGATIVE); NITRITE,URINE NEGATIVE (NEGATIVE); PROTEIN,URINE NEGATIVE (NEGATIVE); URINE SPECIFIC GRAVITY 1.013; UROBILINOGEN,URINE NEGATIVE mg/dL (<2.0)
[2019-09-24 18:24] VITALS: BP 151/109
== END 2019-09-24 18:24 | disposition home or self-care (01) ==
LOC: ER 12:06
DX: R11.2 Nausea with vomiting, unspecified (principal); F12.10 Cannabis abuse, uncomplicated; R10.9 Unspecified abdominal pain; R10.13 Epigastric pain
CPT/HCPCS: 99284; 96374; 96375; 36415; 83690; 85025; 80053; 81001; J1200; J1630; J3490; J2405; J7030; S0028